=== PATIENT | female | born 1955 | race Caucasian/White ===

== ENCOUNTER 2017-10-14 13:56 | Emergency (ER) | payer OTHER ==
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
--- NOTE | 2017-10-14 14:45 | XRAY Report ---
EXAM: LEFT KNEE RADIOGRAPHY EXAM DATE: 10/14/2017 02:15 PM. CLINICAL HISTORY: Left knee pain after fall and twist injury COMPARISON: None. TECHNIQUE: 4 views. FINDINGS: Bones: Possible nondisplaced fracture involving the lateral tibial plateau. No other findings suspici ous for acute fracture or dislocation. Joints: Normal. No effusion. No subluxations. Soft Tissues: Normal. No soft tissue swelling. IMPRESSION: Possible nondisplaced fracture of the lateral tibial plateau. Correlation with CT could b e considered for further evaluation. [facility] Referring Provider Line: [phone] SITE ID: [id number]
[2017-10-14] MEDS ORDERED: ACETAMINOPHEN 325 MG TABLET PO STA (14:57)
--- NOTE | 2017-10-14 15:40 | XRAY Report ---
EXAM: LEFT TIBIA/FIBULA RADIOGRAPHY EXAM DATE: 10/14/2017 03:22 PM. CLINICAL HISTORY: Leg inj. COMPARISON: Prior same day examination of the knee. TECHNIQUE: 2 views. FINDINGS: Bones: The possible nondisplaced proximal tibial fracture was better appreciated on the prior same da y examination of the knee. No additional injuries are seen which are suspicious for fracture in the m id and distal tibia and fibula. Joints: The visualized knee and ankle joints are normal. No effusions. Soft Tissues: Normal. No soft tissue swelling. IMPRESSION: No fractures or dislocation in the distal tibia and fibula. [facility] Referring Provider Line: [phone] SITE ID: [id number]
--- NOTE | 2017-10-14 15:45 | CT Report ---
EXAM: LEFT KNEE CT WITHOUT CONTRAST EXAM DATE: 10/14/2017 03:19 PM. CLINICAL HISTORY: Knee inj, poss frx on XR. Possible nondisplaced fracture lateral tibial plateau lef t knee 4 views 10/14/2017. COMPARISON: Left knee 4 views 10/14/2017 and left leg 2 views 10/14/2017.. TECHNIQUE: Thin-section axial images were acquired of the knee without contrast. Post-processing: Cor onal and sagittal reformats. Other: None. In accordance with CT protocol optimization, one or more of the following dose reduction techniques w ere utilized for this exam: automated exposure control, adjustment of mA and/or KV based on patient s ize, or use of iterative reconstructive technique. FINDINGS: Bones: Sagittal nondisplaced intra-articular fracture lateral tibial plateau with extension to the me taphysis as noted on the left knee radiographs 10/14/2017. The patella is negative for fracture. Dist al femur is negative for fracture. There is no fibular head fracture identified. There is subcortical subtle sclerosis mid lateral tibial plateau consistent with infraction. Slight concavity is noted of the anterior aspect lateral tibial plateau sagittal reconstructions with 1.5 mm depression. Joints: The joint spaces are preserved. No calcified loose bodies. No large effusion. Musculature: Normal. No fatty atrophy. Other: No Bakers cyst. No soft tissue swelling. Negative for ACL tear. Intact posterior cruciate lig ament. Medial collateral ligament and fibular collateral ligament are intact. IMPRESSION: 1. There is a sagittal plane nondisplaced intra-articular fracture lateral tibial plateau. 2. There is subcortical infraction anterior aspect lateral tibial plateau with minimal 1.5 mm depress ion. [facility] Referring Provider Line: [phone] SITE ID: [id number]
[2017-10-14 17:37] VITALS: BP 107/77
== END 2017-10-14 17:55 | disposition home or self-care (01) ==
LOC: ED 13:56
DX: S82.145A Nondisplaced bicondylar fracture of left tibia, initial encounter for closed fracture (principal); W04.XXXA Fall while being carried or supported by other persons, initial encounter
CPT/HCPCS: 29530; 73564; 73590; 73700; 99283; 99284; A9270

== ENCOUNTER 2017-10-30 14:37 | Outpatient (CLI) | payer OTHER ==
--- NOTE | 2017-11-02 15:48 | DEXA Report ---
DEXA SCAN: 10/30/2017 HISTORY: Left tibial fracture. TECHNIQUE: Dual energy x-ray absorptiometry (DXA) was performed on a [employer] system. Regions measured are the AP spine, femoral neck, and, if needed, forearm. COMPARISON: None. In accordance with the International Society for Clinical Densitometry (ISCD) guidelines, data from previous exams may be reanalyzed using current recommendations and techniques. This is done to allow a more accurate basis for comparison with the current study. FINDINGS The data for the lumbar spine is as follows: REGION BMD (g/cm/cm) T-SCORE Z-SCORE L1 0.769 -3.0 -2.4 L2 0.816 -3.2 -2.6 L3 0.839 -3.0 -2.4 L4 0.973 -1.9 -1.3 L1-L4 0.861 -2.7 -2.0 NOTE: All evaluable vertebrae are used for classification. The data for the hip is as follows: REGION BMD (g/cm/cm) T-SCORE Z-SCORE Neck 0.656 -2.7 -1.9 TOTAL 0.644 -2.9 -2.4 NOTE: The femoral neck or total proximal femur, whichever is lowest, is used for classification. IMPRESSION: THE WHO CLASSIFICATION BASED ON THE INTERNATIONAL REFERENCE STANDARD IS OSTEOPOROSIS (REFERENCE LEFT HIP TOTAL BONE MINERAL DENSITY). THE FRACTURE RISK IS HIGH. RECOMMENDATION: Patients with diagnosis of osteoporosis or osteopenia should have regular bone mineral density assessment. For those eligible for Medicare, routine testing is allowed once every 2 years. Testing frequency can be increased for patients who have rapidly progressing disease or for those who are receiving medical therapy to restore bone mass. COMMENT World Health Organization (WHO) definitions for osteoporosis and osteopenia: NORMAL BMD: T-score at 1.0 or higher, fracture risk is low. OSTEOPENIA BMD: T-score between 1.0 and -2.5, fracture risk is increased. OSTEOPOROSIS BMD: T-score at 2.5 or lower, fracture risk high. National Osteoporosis Foundation recommends: 1. Obtain adequate dietary calcium (at least 1200 mg per day) and vitamin D (400 -800 international units per day). 2. Participate, as appropriate, in regular weightbearing and muscle- strengthening exercise. 3. Avoid tobacco use and reduce alcohol and caffeine intake. 4. For more detailed information see the website at www.NOF.org. TD: 10/30/2017 17:04 MTDShane
== END 2017-10-30 14:38 | disposition home or self-care (01) ==
LOC: DI 14:37
PROVIDERS: ATTEND Physician Assistant
DX: S82.152A Displaced fracture of left tibial tuberosity, initial encounter for closed fracture (principal); M81.0 Age-related osteoporosis without current pathological fracture
CPT/HCPCS: 77080

== ENCOUNTER 2018-01-16 08:05 | Outpatient (CLI) | payer OTHER ==
[2018-01-16 12:15] LABS: BASOPHILS # (AUTO) 0.1 10^3/uL (0.0-0.1); BASOPHILS % (AUTO) 0.7 %; EOSINOPHILS # (AUTO) 0.3 10^3/uL (0.0-0.7); EOSINOPHILS % (AUTO) 3.8 %; HGB - HEMOGLOBIN 14.2 g/dL (12.0-16.0); LYMPHOCYTES # (AUTO) 2.6 10^3/uL (1.5-3.5); LYMPHOCYTES % (AUTO) 37.4 %; MEAN CORPUSCULAR HEMOGLOBIN 32.2 pg (27.0-31.0); MEAN CORPUSCULAR HGB CONC 34.2 g/dL (32.0-36.0); MEAN PLATELET VOLUME 9.7 fL (7.9-10.8); MONOCYTES # (AUTO) 0.7 10^3/uL (0.0-1.0); MONOCYTES % (AUTO) 9.6 %; NEUTROPHILS # (AUTO) 3.4 10^3/uL (1.5-6.6); NEUTROPHILS % (AUTO) 48.5 %; PLT - PLATELET COUNT 246 10^3/uL (130-450); RED BLOOD COUNT 4.42 10^6/uL (4.20-5.40); RED CELL DISTRIBUTION WIDTH 13.8 % (12.0-15.0)
[2018-01-16 12:35] LABS: ALBUMIN/GLOBULIN RATIO 1.3 (1.0-2.2); ALKALINE PHOSPHATASE 82 IU/L (42-121); ALT ALANINE AMINOTRANSFERASE 24 IU/L (10-60); AST ASPARTATE AMINOTRANSFERASE 25 IU/L (10-42); BILIRUBIN,TOTAL 1.2 mg/dL (0.2-1.0); BUN - BLOOD UREA NITROGEN 20 mg/dL (6-20); CALCIUM 9.6 mg/dL (8.5-10.3); CARBON DIOXIDE - CO2 28 mmol/L (21-32); CHLORIDE 104 mmol/L (101-111); CHOL/HDL RATIO 3.1 (<4.4); CHOLESTEROL 210 mg/dL; CREATININE 0.8 mg/dL (0.4-1.0); GFR - MDRD 73 (>89); GLUCOSE 97 mg/dL (70-100); HDL CHOLESTEROL 67 mg/dL; LDL CHOLESTEROL,CALCULATED 116 mg/dL; LDL/HDL RATIO 1.7 (<4.4); SODIUM 139 mmol/L (135-145); TOTAL PROTEIN 7.1 g/dL (6.7-8.2); VLDL CHOLESTEROL 27 mg/dL
[2018-01-16 13:18] LABS: HB2 TOTAL 15.6 g/dL; HEMOGLOBIN A1C 0.62 g/dL; HEMOGLOBIN A1C % 5.8 % (4.6-6.2)
== END 2018-01-16 08:06 | disposition home or self-care (01) ==
LOC: LAB.WCP 08:05
PROVIDERS: ATTEND Physician Assistant
DX: Z00.00 Encounter for general adult medical examination without abnormal findings (principal); M81.0 Age-related osteoporosis without current pathological fracture
CPT/HCPCS: 36415; 80053; 80061; 82306; 83036; 83721; 84443; 85025

== ENCOUNTER 2018-05-01 15:34 | Outpatient (CLI) | payer OTHER ==
[2018-05-01] MEDS ORDERED: IOVERSOL 320 100 ML VIAL IVP ONE (15:48)
[2018-05-01] MEDS ORDERED: IOVERSOL 320 50 ML VIAL ONE (15:48)
[2018-05-01 16:00] LABS: BASOPHILS # (AUTO) 0.1 10^3/uL (0.0-0.1); EOSINOPHILS # (AUTO) 0.1 10^3/uL (0.0-0.7); EOSINOPHILS % (AUTO) 0.9 %; HGB - HEMOGLOBIN 14.6 g/dL (12.0-16.0); LYMPHOCYTES # (AUTO) 2.8 10^3/uL (1.5-3.5); LYMPHOCYTES % (AUTO) 19.5 %; MEAN CORPUSCULAR HEMOGLOBIN 31.5 pg (27.0-31.0); MEAN CORPUSCULAR HGB CONC 32.4 g/dL (32.0-36.0); MEAN CORPUSCULAR VOLUME 97.2 fL (81.0-99.0); MEAN PLATELET VOLUME 8.9 fL (7.9-10.8); MONOCYTES # (AUTO) 1.3 10^3/uL (0.0-1.0); MONOCYTES % (AUTO) 8.9 %; NEUTROPHILS # (AUTO) 9.9 10^3/uL (1.5-6.6); NEUTROPHILS % (AUTO) 69.7 %; PLT - PLATELET COUNT 255 10^3/uL (130-450); RED BLOOD COUNT 4.62 10^6/uL (4.20-5.40); RED CELL DISTRIBUTION WIDTH 13.8 % (12.0-15.0); WHITE BLOOD COUNT 14.3 x10^3/uL (4.8-10.8)
[2018-05-01 16:10] LABS: CALCIUM 9.6 mg/dL (8.5-10.3); CREATININE 0.9 mg/dL (0.4-1.0)
[2018-05-01] MEDS ORDERED: BARIUM SULFATE 450 ML BOTTLE PO ONE (17:57)
--- NOTE | 2018-05-01 18:09 | CT Report ---
Reason: DIVERTICULITIS, ACUTE Procedure Date: 05/01/2018 Accession Number: [id number] / [id number] Procedure: CT - Abdomen/Pelvis W/O CPT Code: FULL RESULT: EXAM: CT ABDOMEN AND PELVIS EXAM DATE: 05/01/2018 05:31 PM. CLINICAL HISTORY: Acute diverticulitis. COMPARISONS: None. TECHNIQUE: Routine helical CT imaging was performed through the abdomen and pelvis. IV contrast: No. Enteric contrast: No. Reconstructions: Coronal and sagittal. In accordance with CT protocol optimization, one or more of the following dose reduction techniques were utilized for this exam: automated exposure control, adjustment of mA and/or KV based on patient size, or use of iterative reconstructive technique. FINDINGS: Lung Bases: Unremarkable. Solid organs: Technically limited noncontrast imaging of the solid organs demonstrates no acute including no nephrolithiasis or hydronephrosis. Multiple nodules in the left upper quadrant region are seen likely due to splenosis. The [place] spleen is not well seen. Gallbladder/Bile Ducts: Unremarkable. Peritoneal Cavity/Bowel: There is moderate diverticular disease involving the left hemicolon. Focal wall thickening and fat stranding is seen involving the proximal and distal descending colon consistent with moderate diverticulitis. There is no free fluid or free air. No obstruction or ileus. The appendix is not visualized, however, no inflammatory changes are seen in the right lower quadrant region. Pelvic Organs: Hysterectomy changes are seen. The bladder and visualized pelvic organs are within normal limits. Vasculature: No aneurysms or other significant abnormality. Bones: No significant abnormality. Other: Mild fat-containing ventral hernia is seen in the epigastric region. IMPRESSION: 1. Moderate diverticulitis involving the left hemicolon. No free fluid, free air, or abscess. Consider posttreatment colonoscopy to exclude malignancy. 2. Absent spleen with multiple left upper quadrant nodules likely representing splenosis. 3. Mild fat-containing epigastric ventral hernia. [facility] The call report notification system was initiated by Dr. Arben Sharma at 18:03 hrs on 05/01/18. The above findings were discussed with Sabrina Orr by Dr. Arben Sharma at 18:07 hrs on 05/01/18.
== END 2018-05-01 15:35 | disposition home or self-care (01) ==
LOC: DI 15:34
PROVIDERS: ATTEND Physician Assistant
DX: K57.32 Diverticulitis of large intestine without perforation or abscess without bleeding (principal); K43.9 Ventral hernia without obstruction or gangrene; Z90.81 Acquired absence of spleen
CPT/HCPCS: 36415; 74176; 80048; 85025; A9270

== ENCOUNTER 2018-06-20 08:00 | Outpatient (CLI) | payer OTHER ==
[2018-06-20 19:26] LABS: CALCIUM 9.5 mg/dL (8.5-10.3); PHOSPHORUS 3.6 mg/dL (2.5-4.6)
== END 2018-06-20 23:59 | disposition home or self-care (01) ==
LOC: LAB.WCP 08:00
PROVIDERS: ATTEND Nurse Practitioner
DX: M81.0 Age-related osteoporosis without current pathological fracture (principal)
CPT/HCPCS: 36415; 81599; 82306; 82310; 82523; 83970; 84100

== ENCOUNTER 2018-09-28 13:13 | Outpatient (CLI) | payer OTHER ==
[2018-09-28 18:39] LABS: BASOPHILS # (AUTO) 0.1 10^3/uL (0.0-0.1); BASOPHILS % (AUTO) 0.6 %; EOSINOPHILS # (AUTO) 0.1 10^3/uL (0.0-0.7); EOSINOPHILS % (AUTO) 1.2 %; HGB - HEMOGLOBIN 14.6 g/dL (12.0-16.0); LYMPHOCYTES # (AUTO) 3.1 10^3/uL (1.5-3.5); LYMPHOCYTES % (AUTO) 35.2 %; MEAN CORPUSCULAR HEMOGLOBIN 31.4 pg (27.0-31.0); MEAN CORPUSCULAR HGB CONC 32.8 g/dL (32.0-36.0); MEAN CORPUSCULAR VOLUME 95.8 fL (81.0-99.0); MEAN PLATELET VOLUME 10.1 fL (7.9-10.8); MONOCYTES # (AUTO) 0.5 10^3/uL (0.0-1.0); MONOCYTES % (AUTO) 5.7 %; NEUTROPHILS % (AUTO) 57.3 %; PLT - PLATELET COUNT 243 10^3/uL (130-450); RED BLOOD COUNT 4.64 10^6/uL (4.20-5.40); RED CELL DISTRIBUTION WIDTH 13.5 % (12.0-15.0); WHITE BLOOD COUNT 8.7 x10^3/uL (4.8-10.8)
[2018-09-28 18:58] LABS: ALBUMIN 3.8 g/dL (3.2-5.5); ALBUMIN/GLOBULIN RATIO 1.2 (1.0-2.2); BILIRUBIN,TOTAL 0.7 mg/dL (0.2-1.0); CALCIUM 9.7 mg/dL (8.5-10.3); CREATININE 0.9 mg/dL (0.4-1.0)
== END 2018-09-28 23:59 | disposition home or self-care (01) ==
LOC: LAB.WCP 13:13
PROVIDERS: ATTEND Internal Medicine Gastroenterology
DX: R93.5 Abnormal findings on diagnostic imaging of other abdominal regions, including retroperitoneum (principal); W46.0XXA Contact with hypodermic needle, initial encounter
CPT/HCPCS: 36415; 80053; 85025

== ENCOUNTER 2018-10-05 08:00 | Outpatient (CLI) | payer OTHER ==
[2018-10-05 12:27] LABS: BASOPHILS # (AUTO) 0.1 10^3/uL (0.0-0.1); BASOPHILS % (AUTO) 0.6 %; EOSINOPHILS # (AUTO) 0.2 10^3/uL (0.0-0.7); EOSINOPHILS % (AUTO) 2.3 %; HGB - HEMOGLOBIN 14.3 g/dL (12.0-16.0); LYMPHOCYTES # (AUTO) 2.6 10^3/uL (1.5-3.5); LYMPHOCYTES % (AUTO) 32.3 %; MEAN CORPUSCULAR HEMOGLOBIN 31.3 pg (27.0-31.0); MEAN CORPUSCULAR HGB CONC 32.8 g/dL (32.0-36.0); MEAN CORPUSCULAR VOLUME 95.6 fL (81.0-99.0); MONOCYTES # (AUTO) 0.7 10^3/uL (0.0-1.0); MONOCYTES % (AUTO) 8.7 %; NEUTROPHILS # (AUTO) 4.5 10^3/uL (1.5-6.6); NEUTROPHILS % (AUTO) 56.1 %; PLT - PLATELET COUNT 230 10^3/uL (130-450); RED BLOOD COUNT 4.57 10^6/uL (4.20-5.40); RED CELL DISTRIBUTION WIDTH 13.6 % (12.0-15.0)
[2018-10-05 12:44] LABS: ALBUMIN 3.6 g/dL (3.2-5.5); ALBUMIN/GLOBULIN RATIO 1.1 (1.0-2.2); BILIRUBIN,TOTAL 0.7 mg/dL (0.2-1.0); CALCIUM 9.2 mg/dL (8.5-10.3); CREATININE 0.9 mg/dL (0.4-1.0)
== END 2018-10-05 23:59 | disposition home or self-care (01) ==
LOC: LAB.WCP 08:00
PROVIDERS: ATTEND Internal Medicine Gastroenterology
DX: R93.5 Abnormal findings on diagnostic imaging of other abdominal regions, including retroperitoneum (principal)
CPT/HCPCS: 36415; 80053; 85025

== ENCOUNTER 2018-10-11 12:36 | Day surgery (SDC) | payer OTHER ==
[2018-10-11] MEDS ORDERED: LACTATED RINGERS 1,000 ML IV ONE (13:32)
[2018-10-11 15:55] VITALS: BP 103/71
== END 2018-10-11 12:37 | disposition home or self-care (01) ==
LOC: SDS 12:36
PROVIDERS: ATTEND Internal Medicine Gastroenterology
PROC: 0DBL8ZZ Excision of Transverse Colon, Via Natural or Artificial Opening Endoscopic (ICD-10-PCS; 2018-10-11)
PROC: 0DBM8ZZ Excision of Descending Colon, Via Natural or Artificial Opening Endoscopic (ICD-10-PCS; principal; 2018-10-11 14:00)
DX: K57.30 Diverticulosis of large intestine without perforation or abscess without bleeding (principal); D12.4 Benign neoplasm of descending colon; D12.3 Benign neoplasm of transverse colon; K21.9 Gastro-esophageal reflux disease without esophagitis; R22.2 Localized swelling, mass and lump, trunk; K43.9 Ventral hernia without obstruction or gangrene; J45.909 Unspecified asthma, uncomplicated; E66.9 Obesity, unspecified; Z68.33 Body mass index [BMI] 33.0-33.9, adult; M81.0 Age-related osteoporosis without current pathological fracture; J30.9 Allergic rhinitis, unspecified; R05 Cough; G97.82 Other postprocedural complications and disorders of nervous system; Y83.8 Other surgical procedures as the cause of abnormal reaction of the patient, or of later complication, without mention of misadventure at the time of the procedure; H91.92 Unspecified hearing loss, left ear; R42 Dizziness and giddiness; R26.81 Unsteadiness on feet; R29.810 Facial weakness; Z90.49 Acquired absence of other specified parts of digestive tract; Z86.69 Personal history of other diseases of the nervous system and sense organs; Z87.891 Personal history of nicotine dependence
CPT/HCPCS: 45380; J7120

== ENCOUNTER 2018-10-16 07:17 | Outpatient (CLI) | payer OTHER ==
[2018-10-16 13:18] LABS: CHOL/HDL RATIO 3.2 (<4.4); CHOLESTEROL 210 mg/dL; HDL CHOLESTEROL 66 mg/dL; LDL CHOLESTEROL,CALCULATED 118 mg/dL; LDL/HDL RATIO 1.8 (<4.4); VLDL CHOLESTEROL 26 mg/dL
== END 2018-10-16 07:18 | disposition home or self-care (01) ==
LOC: LAB.WCP 07:17
PROVIDERS: ATTEND Physician Assistant
DX: E78.5 Hyperlipidemia, unspecified (principal)
CPT/HCPCS: 36415; 80061; 83721

== ENCOUNTER 2018-11-12 14:14 | Outpatient (CLI) | payer OTHER ==
--- NOTE | 2018-11-12 15:50 | CARDIAC PROCEDURE NOTE ---
DATE OF SERVICE: 11/12/2018 Physician: Danika Garcia MD, [facility] INDICATIONS: Shortness of breath with exertion. CARDIAC RISK FACTORS: Postmenopausal status, family history of heart disease. DESCRIPTION OF PROCEDURE: After signing informed consent, the patient underwent a Bruno-protocol treadmill stress test. No imaging was ordered with this test. RESTING HEART RATE: 70. PEAK HEART RATE: 133 (85% predicted maximum heart rate for age). RESTING BLOOD PRESSURE: 122/75. Peak blood pressure: 164/82 and it kiley further in early recovery to 170/85 before reversing to baseline. The patient exercised for 5 minutes and 3 seconds on a Bruno-protocol treadmill stress test. She achieved a peak heart rate of 133 (85% PMHR) and 7.1 METS. The patient developed shortness of breath, which she rated moderate, and had no chest pain. She rated her exertional level at 13-14 /20 at peak, on the Beatriz scale. Oxygen saturation was 96% on room air, at immediate recovery. RESTING ELECTROCARDIOGRAM: Normal sinus rhythm, rare PACs, otherwise WNL. ELECTROCARDIOGRAM AT PEAK: No new ST segment or T-wave changes, rare PACs, rare PVCs present. IMPRESSION 1. Borderline abnormal resting electrocardiogram. 2. No ischemic changes are present at peak, at an adequate level of stress. 3. No imaging study was ordered with this test. 4. Low cardiac risk status with the above test results. cc: Sabrina Orr PA-C TD: 11/12/2018 15:41 MTDD
== END 2018-11-12 14:15 | disposition home or self-care (01) ==
LOC: DI 14:14
PROVIDERS: ATTEND Physician Assistant
DX: R06.00 Dyspnea, unspecified (principal); Z82.49 Family history of ischemic heart disease and other diseases of the circulatory system; Z78.0 Asymptomatic menopausal state
CPT/HCPCS: 93017

== ENCOUNTER 2019-06-19 15:11 | Outpatient (CLI) | payer OTHER ==
[2019-06-19 19:15] LABS: HB2 TOTAL 15.2 g/dL; HEMOGLOBIN A1C 0.62 g/dL; HEMOGLOBIN A1C % 5.9 % (4.6-6.2)
== END 2019-06-19 23:59 | disposition home or self-care (01) ==
LOC: LAB.WCP 15:11
PROVIDERS: ATTEND Physician Assistant
DX: R73.9 Hyperglycemia, unspecified (principal)
CPT/HCPCS: 36415; 82330; 83036

== ENCOUNTER 2019-06-19 15:53 | Outpatient (CLI) | payer OTHER | END 2019-06-19 15:54 | disposition home or self-care (01) | LOC: LAB 15:53 | PROVIDERS: ATTEND Nurse Practitioner | DX: M81.0 Age-related osteoporosis without current pathological fracture (principal); R73.9 Hyperglycemia, unspecified | CPT/HCPCS: 36415; 82330; 83036 ==

== ENCOUNTER 2019-06-22 14:42 | Outpatient (CLI) | payer OTHER | END 2019-06-22 14:43 | disposition home or self-care (01) | LOC: LAB 14:42 | PROVIDERS: ATTEND Nurse Practitioner | DX: M81.0 Age-related osteoporosis without current pathological fracture (principal) | CPT/HCPCS: 82310 ==

== ENCOUNTER 2020-02-12 14:28 | Outpatient (CLI) | payer OTHER ==
--- NOTE | 2020-02-12 17:08 | DEXA Report ---
PROCEDURE: Dexa Spine and/or Hip INDICATIONS: OSTEOPOROSIS TECHNIQUE: Dual energy x-ray absorptiometry (DXA) was performed on a [employer] System. Regions measur ed are the AP Spine, femoral neck, and if needed forearm. COMPARISON: 11/13 bone densitometry study, same methodology.. FINDINGS: Lumbar Spine: Bone Mineral Density 1.033 g/cm/cm,T score -1.2, osteopenia, this represents a 20% statistically s ignificant improvement in bone mineral density with reference to the prior study from October 2017. Left Hip: Bone Mineral Density 0.641 g/cm/cm,T score -2.9, osteoporosis Left Femoral Neck: Bone Mineral Density 0.619 g/cm/cm, T score -3.0, osteoporosis (T score greater or equal to -1.0: NORMAL) (T score from -1.1 to -2.4: OSTEOPENIA) (T score less than or equal to -2.5 to: OSTEOPOROSIS) Impression: There has been a statistically significant improvement in bone mineral density along the lumbosacral spine, with reference to the prior study from October 2017. Osteopenia is present at this ar ea. Osteoporosis is present at the left hip overall and the left femoral neck specifically. No statis tically significant improvement at the left hip area is observed. Patients with diagnosis of osteoporosis or osteopenia should have regular bone mineral density assess ment. For those eligible for Medicare, routine testing is allowed once every 2 years. Testing frequ ency can be increased for patients who have rapidly progressing disease or for those who are receivin g medical therapy to restore bone mass. Reviewed by: Freedom Lord MD on 02/12/2020 5:07 PM PDT Approved by: Freedom Lord MD on 02/12/2020 5:07 PM PDT Station ID: [id number]
== END 2020-02-12 14:29 | disposition home or self-care (01) ==
LOC: DI 14:28
PROVIDERS: ATTEND Internal Medicine Endocrinology, Diabetes & Metabolism
DX: M81.0 Age-related osteoporosis without current pathological fracture (principal)
CPT/HCPCS: 77080

== ENCOUNTER 2020-04-27 07:00 | Outpatient (CLI) | payer OTHER | END 2020-04-27 23:59 | disposition home or self-care (01) | LOC: LAB.R 07:00 | PROVIDERS: ATTEND Physician Assistant | DX: R53.83 Other fatigue (principal); Z20.828 Contact with and (suspected) exposure to other viral communicable diseases ==

== ENCOUNTER 2020-07-24 11:55 | Outpatient (CLI) | payer OTHER ==
[2020-07-24 15:34] LABS: ALBUMIN 4.4 g/dL (3.2-5.5); CALCIUM 10.2 mg/dL (8.5-10.3); CREATININE 0.9 mg/dL (0.4-1.0); PHOSPHORUS 3.6 mg/dL (2.5-4.6); POTASSIUM 4.1 mmol/L (3.5-5.0)
== END 2020-07-24 11:56 | disposition home or self-care (01) ==
LOC: LAB.S 11:55
PROVIDERS: ATTEND Internal Medicine Endocrinology, Diabetes & Metabolism
DX: M81.0 Age-related osteoporosis without current pathological fracture (principal)
CPT/HCPCS: 36415; 80069; 82306; 83970

== ENCOUNTER 2020-12-09 12:56 | Outpatient (CLI) | payer MEDICARE, OTHER ==
--- NOTE | 2020-12-10 12:48 | Mammography Report ---
BILATERAL DIGITAL SCREENING MAMMOGRAM 3D/2D: 12/09/2020 CLINICAL: Family history of breast cancer. Comparison is made to exam dated: 12/14/2016 mammogram - [facility] [place]. There are scattered fibroglandular elements in both breasts. No significant masses, calcifications, or other findings are seen in either breast. There has been no significant interval change. IMPRESSION: NEGATIVE There is no mammographic evidence of malignancy. A 1 year screening mammogram is recommended. This exam was interpreted at Station ID: [id number]. NOTE: For mammograms, a report in lay terms will be sent to the patient. Approximately 15% of breast malignancies will not be visualized mammographically. In the management of a palpable breast mass, a negative mammogram must not discourage biopsy of a clinically suspicious lesion. Electronically Signed By: Bossman amin/raquel:12/09/2020 13:46:52 ACR BI-RADS Category 1: Negative 3341F PARENCHYMAL PATTERN: (A) - The breast(s) demonstrate(s) scattered fibroglandular densities. BI-RADS CATEGORY: (1) - 1 RECOMMENDATION: (ANNUAL) - Recommend routine annual screening mammography. [id number] 1 year screening LATERALITY: (B)
== END 2020-12-09 12:57 | disposition home or self-care (01) ==
LOC: DI.S 12:56
PROVIDERS: ATTEND Registered Nurse
DX: Z12.31 Encounter for screening mammogram for malignant neoplasm of breast (principal); Z80.3 Family history of malignant neoplasm of breast

== ENCOUNTER 2021-02-18 19:01 | Inpatient (IN) | payer MEDICARE ==
[2021-02-18] MEDS ORDERED: SODIUM CHLORIDE 0.9% 1,000 ML IV STA ×2 (19:16→20:47)
[2021-02-18] MEDS ORDERED: ONDANSETRON 4 MG/2 ML VIAL IVP STA (19:16)
[2021-02-18] MEDS ORDERED: KETOROLAC 15 MG/ML VIAL IVP STA ×2 (19:27→20:58)
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
[2021-02-18 19:34] LABS: BILIRUBIN,URINE NEGATIVE (NEGATIVE); GLUCOSE, URINE (UA) NEGATIVE (NEGATIVE); KETONES,URINE (UA) 40 mg/dL (NEGATIVE); LEUKOCYTE ESTERASE, URINE NEGATIVE (NEGATIVE); NITRITE,URINE NEGATIVE (NEGATIVE); OCCULT BLOOD,URINE SMALL (NEGATIVE); PROTEIN,URINE NEGATIVE (NEGATIVE); UROBILINOGEN,URINE 0.2 (NORMAL) E.U./dL (NORMAL)
[2021-02-18 19:36] LABS: CLARITY,URINE CLEAR (CLEAR)
[2021-02-18 19:43] LABS: BACTERIA,URINE Rare /HPF (None Seen); MUCUS,URINE Few Strands; RBC,URINE 0-5 /HPF (0-5); SQUAMOUS EPITHELIAL CELL,UR RARE Squamous (<= Few); WBC,URINE 0-3 /HPF (0-5)
[2021-02-18 19:47] LABS: BASOPHILS # (AUTO) 0.1 10^3/uL (0.0-0.1); BASOPHILS % (AUTO) 0.3 %; EOSINOPHILS # (AUTO) 0.2 10^3/uL (0.0-0.7); EOSINOPHILS % (AUTO) 0.9 %; HCT - HEMATOCRIT 47.9 % (37.0-47.0); HGB - HEMOGLOBIN 15.8 g/dL (12.0-16.0); LYMPHOCYTES # (AUTO) 3.3 10^3/uL (1.5-3.5); LYMPHOCYTES % (AUTO) 17.1 %; MEAN CORPUSCULAR HEMOGLOBIN 31.9 pg (27.0-31.0); MEAN CORPUSCULAR VOLUME 96.6 fL (81.0-99.0); MEAN PLATELET VOLUME 10.9 fL (7.9-10.8); MONOCYTES # (AUTO) 1.9 10^3/uL (0.0-1.0); MONOCYTES % (AUTO) 9.8 %; NEUTROPHILS # (AUTO) 13.6 10^3/uL (1.5-6.6); NEUTROPHILS % (AUTO) 71.4 %; PLT - PLATELET COUNT 227 10^3/uL (130-450); RED BLOOD COUNT 4.96 10^6/uL (4.20-5.40); WHITE BLOOD COUNT 19.1 x10^3/uL (4.8-10.8)
[2021-02-18 19:52] LABS: SLIDE REVIEW? Indicated
[2021-02-18 20:07] LABS: ALBUMIN 4.2 g/dL (3.2-5.5); ALBUMIN/GLOBULIN RATIO 1.2 (1.0-2.2); BILIRUBIN,TOTAL 1.7 mg/dL (0.2-1.0); CALCIUM 9.7 mg/dL (8.5-10.3); CREATININE 0.8 mg/dL (0.4-1.0); POTASSIUM 4.3 mmol/L (3.5-5.0); TOTAL PROTEIN 7.6 g/dL (6.7-8.2)
[2021-02-18] MEDS ORDERED: IOPAMIDOL-300 100 ML VIAL ONE (20:13)
[2021-02-18 20:18] LABS: PLATELET ESTIMATE, MANUAL NORMAL (130-450,000) (NORMAL); PLATELET MORPHOLOGY NORMAL APPEARANCE (NORMAL); RBC MORPHOLOGY (MULTIPLE) NORMAL APPEARANCE (NORMAL); WBC MORPHOLOGY (MULTIPLE) NORMAL APPEARANCE (NORMAL)
[2021-02-18] MEDS ORDERED: diphenhydrAMINE INJ 50 MG/ML VIAL IVP STA (20:20)
[2021-02-18] MEDS ORDERED: CIPROFLOXACIN 400 MG/200 ML 400 MG/200 ML BAG IV STA (20:48)
[2021-02-18] MEDS ORDERED: metroNIDAZOLE 500 MG/100 ML 500 MG/100 ML BAG IV ONE (20:49)
[2021-02-18] MEDS ORDERED: IOPAMIDOL-300 100 ML VIAL IVP ONE (20:51)
[2021-02-18] MEDS ORDERED: FAMOTIDINE 20 MG/2 ML VIAL IVP STA (20:58)
[2021-02-18] MEDS ORDERED: METOCLOPRAMIDE 10 MG/2 ML VIAL IVP STA (20:58)
--- NOTE | 2021-02-18 21:26 | CT Report ---
PROCEDURE: Abdomen/Pelvis W INDICATIONS: LLQ/suprapubic pain CONTRAST: IV CONTRAST: Isovue 300 ml: 100 PO CONTRAST: *NO PO CONTRAST TECHNIQUE: After the administration of weight appropriate dose of intravenous contrast, 5 mm thick sections acqu ired from the diaphragms to the symphysis. 5 mm thick coronal and sagittal reformats were acquired. For radiation dose reduction, the following was used: automated exposure control, adjustment of mA and/or kV according to patient size. COMPARISON: 05/01/2018. FINDINGS: Image quality: Excellent. ABDOMEN: Lung bases: Bibasilar atelectasis. Heart size is normal. Small hiatal hernia. Solid organs: Liver appears normal in size and enhancement. Gallbladder is unremarkable. Biliary system is non dilated. Pancreas enhances normally. No adrenal nodules. Multiple splenules are again noted, compatible with splenosis. Kidneys demonstrate normal size and enhancement, without hydroneph rosis. Bilateral ureters are normal in course and caliber. Peritoneum and bowel: Extensive colonic diverticulosis most pronounced in the descending colon and s igmoid colon. There is moderate inflammatory changes of the sigmoid colon with associated wall thicke isaac. There is also a focus of extraluminal gas noted over the antimesenteric side of the sigmoid col on measuring approximately 2.1 cm in size. No evidence for organized fluid collection. Remaining hi l loops demonstrate normal wall thickness and caliber. No free fluid. Nodes and vessels: No retroperitoneal or mesenteric adenopathy by size criteria. Aorta and inferior vena cava are normal in size. Atherosclerotic calcifications are present. Miscellaneous: Stable small fat-containing ventral hernia a short distance superior to the umbilicus without evidence for acute inflammation.. PELVIS: Genitourinary: Bladder wall thickness is normal for degree of bladder distention. Miscellaneous: No inguinal hernias or adenopathy. Bones: No suspicious bony lesions. No acute vertebral body compression fractures. IMPRESSION: 1. Extensive colonic diverticulosis most pronounced in the descending colon and sigmoid colon with a segment of moderate acute diverticulitis of the sigmoid colon. There is an associated contained perfo ration adjacent to the antimesenteric side of the mid sigmoid colon. No evidence for abscess formatio n or drainable fluid collection. Consider outpatient colonoscopy to exclude underlying neoplastic pro cess after treatment and resolution of acute symptoms. 2. Stable appearance of splenosis. 3. Fat-containing ventral hernia without acute inflammation. Findings were discussed with Dr. Márquez of the emergency department at 2122 hours. Reviewed by: Tushar Munoz MD on 02/18/2021 9:25 PM PDT Approved by: Tushar Munoz MD on 02/18/2021 9:25 PM PDT Station ID: [id number]
[2021-02-18] MEDS ORDERED: SODIUM CHLORIDE FLUSH 0.9% 10 ML SYRINGE IVP PRN (21:52)
--- NOTE | 2021-02-18 22:04 | HISTORY & PHYSICAL EXAMINATION ---
Chief Complaint - Chief Complaint Chief Complaint: abd pain, N/V History of Present Illness - Admitted From Admitted From:: ED - History Obtained From History obtained from: ED provider and the patient - History of Present Illness HPI Comment/Other: This is a 65-year-old white female with history of GERD, osteoporosis and 5 prior episodes of diverticulitis, managed with oral antibiotics. Today she went to the [place] walk-in clinic complaining of severe lower abdominal pain, nausea and vomiting, was constipated for several days then had passed a pebble-like hard stool, not normal for her. At tne clinic, she was found to have a low-grade fever and sent to the ED. In the ED, her exam showed tenderness of the abdomen but a nonsurgical belly. CT imaging showed extensive diverticulosis with diverticulitis of the sigmoid colon and a contained perforation, no abscess and no free air. White blood count elevated at 19. The ED provider reached out to the General Surgeon on-call, Dr. Quiroz, who stated that this problem could be handled here and advised admission to Hospitalist service and General Surgery to follow as consultants. Her CODE status is Full Code. 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 Her parents do not have diverticulitis but her sister does. Her one child does not have diverticulitis. Living arrangement: At home Living Situation: With spouse/s.o. Social History Notes: She has 1 adult child who is healthy. She is a non-smoker who quit 30 years ago. She drinks 1 glass of wine per day. There is no illicit drug use history. 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 She is active around the house, currently doing remodeling with her . - Substance History Use: Uses substance without health or social issues: Alcohol Meds/Allgy - Home Medications Home Medications: Ambulatory Orders Medication Instructions Recorded Confirmed Fluticasone [Flonase] 1 applic INH DAILY 10/14/17 10/11/18 Omeprazole [PriLOSEC] 2 tab PO DAILY 10/14/17 10/11/18 Abaloparatide [Tymlos] 1.56 ml SQ 10/11/18 10/11/18 C,E,Zinc,Copper 11/Eblha0o/Lut 1 each PO DAILY 10/11/18 10/11/18 [Ocuvite Adult 50 Plus Softgel] Cholecalciferol (Vitamin D3) 5,000 unit PO DAILY 10/11/18 10/11/18 [Vitamin D3] Fexofenadine HCl 180 mg PO DAILY 10/11/18 10/11/18 Lactobacillus Acidophilus 1 each PO DAILY 10/11/18 10/11/18 [Probiotic Acidophilus] Mometasone Furoate [Asmanex] 220 mcg IH BID 10/11/18 10/11/18 Multivitamin [One Daily 1 each PO DAILY 10/11/18 10/11/18 Multivitamin] - Allergies Allergies/Adverse Reactions: Allergies Allergy/AdvReac Type Severity Reaction Status Date / Time Iodinated Contrast Media Allergy Anaphylaxis Verified 02/18/21 19:11 [Iodinated Contrast- Oral and IV Dye] Sulfa (Sulfonamide Allergy Anaphylaxis Verified 02/18/21 19:11 Antibiotics) Review of Systems - Gastrointestinal Gastrointestinal: reports: Abdominal pain, Constipation, Nausea, Vomiting - All Other Systems All Other Systems: reports: Reviewed and negative Exam - Vital Signs Reviewed Vital Signs: Yes Vital Signs: Vital Signs x48h Temp Pulse Resp BP Pulse Ox 02/18/21 21:11 37.2 C 72 15 119/70 95 02/18/21 19:05 37.4 C 101 H 14 144/91 H 98 - Physical Exam General Appearance: positive: No acute distress, Alert Eyes Bilateral: positive: Normal inspection, EOMI ENT: positive: ENT inspection nml, No signs of dehydration Neck: positive: Nml inspection, No JVD Respiratory: positive: No respiratory distress, Breath sounds nml Cardiovascular: positive: Regular rate & rhythm, No murmur Abdomen: positive: No distention (Soft, diminished bowel sounds, tender in lower mid-abdomen without gurading or rebound.) Skin: positive: Warm, Dry Extremities: positive: Non-tender, No pedal edema Neurologic/Psychiatric: positive: Oriented x3 (Non-focal.) Conclusion/Plan - Problem List (1) Sigmoid diverticulitis Conclusion/Plan: Imaging shows diverticulitis and she had a (low-grade) fever, elevated WBC and elevated bili (probably phase reactant). Begin bowel rest, iv fluids and empiric iv antibiotics (iv Cipro and iv Flagyl). Await blood culture results, sent from the ER. Give iV pain meds; the patient is turning down narcotics as they cause her nausea. (2) Bowel perforation Conclusion/Plan: As per Dr Quiroz' discussion with ED provider, this complication of divereticulitis can be handled here. Will ask for General Surgery consult and to follow along with us. (3) N&V (nausea and vomiting) Conclusion/Plan: Give iv antiemetics Bowel rest except sips and chips iv fluids started Follow BMP and Ca, Mg, PO4 daily. Replace if low. (4) Prerenal azotemia Conclusion/Plan: Likely related to dehydration from N/V. Avoi nephrotoxins. IV fluids started Follow BMP daily (5) Hx of gastroesophageal reflux (GERD) Conclusion/Plan: Will give iv Pepcid (6) Allergy to IVP dye Conclusion/Plan: According to the record, she has allergy to IV dye. She told the ED today that she has had it recently and has had no reactions. She received Benadryl before this current CT imaging with IV contrast given and has been somnolent and hypopneic. - Lab Results Fish Bones: 02/18/21 19:35 02/18/21 19:35
[2021-02-18] MEDS: D5NS W/20 MEQ KCL 1,000 ML IV SCH (22:52)
[2021-02-18 23:19] LABS: B. PARAPERTUSSIS- RESP PCR PAN NOT DETECTED; B. PERTUSSIS- RESP PCR PANEL NOT DETECTED; C. PNEUMONIAE- RESP PCR PANEL NOT DETECTED; CORONAVIRUS 229E-RESP PCR NOT DETECTED; CORONAVIRUS HKU1-RESP PCR NOT DETECTED; CORONAVIRUS NL63-RESP PCR NOT DETECTED; CORONAVIRUS OC43-RESP PCR NOT DETECTED; HUMAN METAPNEUMOVIRUS NOT DETECTED; INFLUENZA A- RESP PCR PANEL NOT DETECTED; INFLUENZA B - RESP PCR PANEL NOT DETECTED; M. PNEUMONIAE- RESP PCR PANEL NOT DETECTED; PARAINFLUENZA VIRUS 1 NOT DETECTED; PARAINFLUENZA VIRUS 2 NOT DETECTED; PARAINFLUENZA VIRUS 3 NOT DETECTED; PARAINFLUENZA VIRUS 4 NOT DETECTED; RHINOVIRUS/ENTEROVIRUS NOT DETECTED; RSV- RESP PCR PANEL NOT DETECTED; SARS-CoV-2 -RESP PCR PANEL NOT DETECTED
[2021-02-18] MEDS: SODIUM CHLORIDE FLUSH 0.9% 10 ML SYRINGE IVP SCH (23:59)
[2021-02-18] MEDS: FAMOTIDINE 20 MG/2 ML VIAL IVP SCH (23:59)
[2021-02-19] MEDS: KETOROLAC 15 MG/ML VIAL IVP PRN ×4 (04:48→23:32)
[2021-02-19] MEDS: metroNIDAZOLE 500 MG/100 ML 500 MG/100 ML BAG IV SCH ×3 (04:49→21:16)
[2021-02-19 05:46] LABS: BASOPHILS % (AUTO) 0.3 %; EOSINOPHILS # (AUTO) 0.2 10^3/uL (0.0-0.7); EOSINOPHILS % (AUTO) 1.6 %; HCT - HEMATOCRIT 39.1 % (37.0-47.0); HGB - HEMOGLOBIN 12.5 g/dL (12.0-16.0); LYMPHOCYTES # (AUTO) 2.5 10^3/uL (1.5-3.5); LYMPHOCYTES % (AUTO) 19.5 %; MEAN CORPUSCULAR HEMOGLOBIN 31.6 pg (27.0-31.0); MEAN PLATELET VOLUME 10.8 fL (7.9-10.8); MONOCYTES # (AUTO) 1.4 10^3/uL (0.0-1.0); MONOCYTES % (AUTO) 11.4 %; NEUTROPHILS # (AUTO) 8.4 10^3/uL (1.5-6.6); NEUTROPHILS % (AUTO) 66.7 %; PLT - PLATELET COUNT 197 10^3/uL (130-450); RED BLOOD COUNT 3.95 10^6/uL (4.20-5.40); RED CELL DISTRIBUTION WIDTH 14.1 % (12.0-15.0); WHITE BLOOD COUNT 12.6 x10^3/uL (4.8-10.8)
[2021-02-19 06:01] LABS: CALCIUM 8.2 mg/dL (8.5-10.3); CREATININE 0.8 mg/dL (0.4-1.0); MAGNESIUM 2.1 mg/dL (1.7-2.8); PHOSPHORUS 2.8 mg/dL (2.5-4.6); POTASSIUM 3.7 mmol/L (3.5-5.0)
[2021-02-19] MEDS: FAMOTIDINE 20 MG/2 ML VIAL IVP SCH ×2 (08:50→21:15)
[2021-02-19] MEDS: D5NS W/20 MEQ KCL 1,000 ML IV SCH ×2 (08:51→23:54)
[2021-02-19] MEDS: SODIUM CHLORIDE FLUSH 0.9% 10 ML SYRINGE IVP SCH ×2 (08:51→17:21)
[2021-02-19] MEDS ORDERED: FAMOTIDINE 20 MG/2 ML VIAL IVP SCH (09:00)
--- NOTE | 2021-02-19 09:10 | PROVIDER PROGRESS NOTE ---
Assessment/Plan - Problem List (1) Bowel perforation Assessment/Plan: According to admitting hospitalist note, Dr. Quiroz was consulted by ED provider and determined that complication of diverticulitis can be handled here. CT of abd showed extensive diverticulosis that is more pronounced in the descending and sigmoid colon. There is also an associated contained perforation adjacent to the antimesenteric side of the mid sigmid colon. No evidence for abscess or fluid collection. Plan: General Surgery to consult and follow along with hospitalist team. Continue with IV antibiotic therapy, Cipro and Flagyl. (2) Sigmoid diverticulitis Assessment/Plan: Upon admission to unit patient had lower grade fever of 37.4C which has improved to 36.3C today. Her initial WBC were elevated to 19.1 and have decreased to 12.6 today. Initial bilirubin was elevated 1.7, this is most likly due to divertiulitis since liver enzymes are normal and no pathological cause was identified on on the CT. Imaging did show moderate diverticulitis of the sigmoid colon. Blood cultures sent from ED and are currently pending. Plan: Continue bowel rest with sips and chips for comfort and to keep mucus membranes moist. Continue IV fluids D5 + 20KCL while NPO. Continue empiric IV antibiotics with Cipro and Flagyl. Continue with IV Toradol for pain management. Add IV morphine for prn breakthrough pain, however she prefers not to use narcotics. Continue to monitor WBC and temperature. Repeat the bilirubin to monitor trend. (3) N&V (nausea and vomiting) Assessment/Plan: Patient reports nausea that coincided with abdominal pain. She denies vomiting and reports that the nausea is well controlled with current antiemetics. Plan: Continue bowel rest except sips and chips Continue with iv D5 +20KCL. Monitor BMP, Ca, Mg, PO4 daily and replace if low. (4) Prerenal azotemia Assessment/Plan: Initial BUN/ Creat 23/0.8 is improved today 17/0.8. Likely related to dehydration from N/V. Plan: Avoid nephrotoxins. Continue with IV fluids D5 +20KCL. Follow BMP daily. (5) Hx of gastroesophageal reflux (GERD) Assessment/Plan: Patient has history of GERD and takes Prilosec outpatient. Plan: Continue with iv Pepcid BID. - Current Meds Current Meds: Current Medications Generic Name Dose Route Start Last Admin Trade Name Freq PRN Reason Stop Dose Admin Famotidine 20 mg 02/18/21 23:00 02/19/21 08:50 Famotidine 20 Mg/2 Ml Vial IVP 20 mg BID PATTIE Administration Potassium Chloride/Dextrose/Sod Cl 1,000 mls @ 100 mls/hr 02/18/21 22:00 02/19/21 08:51 D5ns W/20 Meq Kcl IV 100 mls/hr .Q10H PATTIE Administration Metronidazole 500 mg in 100 mls @ 100 mls/hr 02/19/21 05:00 02/19/21 06:01 Flagyl 500 Mg/100 Ml IV Infused Q8H PATTIE Infusion Ketorolac Tromethamine 15 mg 02/18/21 21:57 02/19/21 04:48 Ketorolac 15 Mg/Ml Vial IVP 02/23/21 21:56 15 mg Q6HR PRN Administration PAIN Sodium Chloride 10 ml 02/19/21 01:00 02/19/21 08:51 Sodium Chloride Flush 0.9% 10 Ml Syringe IVP 10 ml 0100,0900,1700 PATTIE Administration - Lab Result Fish Bone Diagrams: 02/19/21 05:18 02/19/21 05:18 <Demetra Marshall - Last Filed: 02/19/21 11:06> - Current Meds Current Meds: Current Medications Generic Name Dose Route Start Last Admin Trade Name Vladislav PRN Reason Stop Dose Admin Famotidine 20 mg 02/18/21 23:00 02/20/21 08:40 Famotidine 20 Mg/2 Ml Vial IVP 20 mg BID PATTIE Administration Potassium Chloride/Dextrose/Sod Cl 1,000 mls @ 100 mls/hr 02/18/21 22:00 02/20/21 10:58 D5ns W/20 Meq Kcl IV 100 mls/hr .Q10H PATTIE Infusion Ciprofloxacin 400 mg in 200 mls @ 200 mls/hr 02/19/21 10:00 02/20/21 10:50 Cipro 400 Mg/200 Ml IV Infused Q12H PATTIE Infusion Metronidazole 500 mg in 100 mls @ 100 mls/hr 02/19/21 05:00 02/20/21 13:45 Flagyl 500 Mg/100 Ml IV Infused Q8H PATTIE Infusion Ketorolac Tromethamine 15 mg 02/18/21 21:57 02/20/21 06:33 Ketorolac 15 Mg/Ml Vial IVP 02/23/21 21:56 15 mg Q6HR PRN Administration PAIN Morphine Sulfate 2 mg 02/20/21 10:36 02/20/21 12:21 Morphine 2 Mg/Ml Carpuject IVP 2 mg Q2HR PRN Administration PAIN Ondansetron HCl 4 mg 02/18/21 21:52 02/20/21 09:18 Ondansetron 4 Mg/2 Ml Vial IVP 4 mg Q6HR PRN Administration Nausea / Vomiting Prochlorperazine Edisylate 10 mg 02/18/21 21:52 02/20/21 12:29 Prochlorperazine 10 Mg/2 Ml Vial IVP 10 mg Q6HR PRN Administration Nausea / Vomiting Sodium Chloride 10 ml 02/18/21 21:52 02/20/21 12:22 Sodium Chloride Flush 0.9% 10 Ml Syringe IVP 10 ml PRN PRN Administration NEEDED PER PROVIDER ORDERS Sodium Chloride 10 ml 02/19/21 01:00 02/20/21 17:09 Sodium Chloride Flush 0.9% 10 Ml Syringe IVP Not Given 0100,0900,1700 PATTIE - Lab Result Fish Bone Diagrams: 02/20/21 05:29 02/20/21 05:29 - Additional Planning My Orders: My Active Orders 02/20/21 10:36 Morphine Inj (Carpuject) [Morphine (Carpuject)] 2 mg IVP Q2HR PRN 02/20/21 Lunch Clear Liquid Diet [DIET] <Britney David - Last Filed: 02/20/21 17:38> Subjective - Subjective Patient Reports: Feeling Better, Resting Comfortably, Abdominal Pain, Nausea (Patient reports feeling better today with continued mid lower abdominal pain 4/10 that is achy in character. It is associated with nausea. Pain and nausea are worse with movement but improve with rest and toradol.) <Demetra Marshall - Last Filed: 02/19/21 11:06> Objective Vital Signs: Vital Signs - 24 hr 02/18/21 02/18/21 02/18/21 19:05 21:11 22:39 Temperature 37.4 C 37.2 C Heart Rate 101 H 72 Heart Rate [ 74 Brachial] Respiratory 14 15 18 Rate Blood Pressure 144/91 H 119/70 Blood Pressure 116/69 [Right Brachial artery] O2 Saturation 98 95 95 02/19/21 02/19/21 02/19/21 00:00 04:41 05:01 Temperature 37.0 C 36.3 C L 36.3 C L Heart Rate 60 Heart Rate [ 61 60 Brachial] Respiratory 16 16 16 Rate Blood Pressure Blood Pressure 100/60 106/62 [Right Brachial artery] O2 Saturation 96 97 97 02/19/21 08:17 Temperature 36.8 C Heart Rate Heart Rate [ 58 L Brachial] Respiratory 18 Rate Blood Pressure Blood Pressure 92/61 [Right Brachial artery] O2 Saturation 95 Oxygen O2 Source Room air I&O (Last 24 Hrs): Intake and Output Totals x24h 02/17/21 02/18/21 02/19/21 23:59 23:59 23:59 Intake Total 3136.448 6995.000 Balance 0813.286 4055.000 General: Alert, Oriented x3, Cooperative, No acute distress HEENT: PERRLA, Mucous membr. moist/pink Neck: Supple, No JVD Neuro: Alert, Oriented Times 3 Cardiovascular: Regular rate, No murmurs Respiratory: Chest non-tender, No respiratory distress, Breath sounds nml Abdomen: Soft, No masses, Other (Hypoactive bowel sounds. Right and left lower quadrants tender to palpation.) - Results Results: Laboratory Results WBC 12.6 x10^3/uL (4.8-10.8) H 02/19/21 05:18 RBC 3.95 10^6/uL (4.20-5.40) L 02/19/21 05:18 Hgb 12.5 g/dL (12.0-16.0) 02/19/21 05:18 Hct 39.1 % (37.0-47.0) 02/19/21 05:18 MCV 99.0 fL (81.0-99.0) 02/19/21 05:18 MCH 31.6 pg (27.0-31.0) H 02/19/21 05:18 MCHC 32.0 g/dL (32.0-36.0) 02/19/21 05:18 RDW 14.1 % (12.0-15.0) 02/19/21 05:18 Plt Count 197 10^3/uL (130-450) 02/19/21 05:18 MPV 10.8 fL (7.9-10.8) 02/19/21 05:18 Neut # (Auto) 8.4 10^3/uL (1.5-6.6) H 02/19/21 05:18 Lymph # (Auto) 2.5 10^3/uL (1.5-3.5) 02/19/21 05:18 Foster # (Auto) 1.4 10^3/uL (0.0-1.0) H 02/19/21 05:18 Eos # (Auto) 0.2 10^3/uL (0.0-0.7) 02/19/21 05:18 Baso # (Auto) 0.0 10^3/uL (0.0-0.1) 02/19/21 05:18 Absolute Nucleated RBC 0.00 x10^3/uL 02/19/21 05:18 Nucleated RBC % 0.0 /100WBC 02/19/21 05:18 Manual Slide Review Indicated 02/18/21 19:35 WBC Morphology NORMAL APPEARANCE (NORMAL) 02/18/21 19:35 Platelet Estimate NORMAL (130-450,000) (NORMAL) 02/18/21 19:35 Platelet Morphology NORMAL APPEARANCE (NORMAL) 02/18/21 19:35 RBC Morph Micro Appear NORMAL APPEARANCE (NORMAL) 02/18/21 19:35 Sodium 142 mmol/L (135-145) 02/19/21 05:18 Potassium 3.7 mmol/L (3.5-5.0) 02/19/21 05:18 Chloride 109 mmol/L (101-111) 02/19/21 05:18 Carbon Dioxide 24 mmol/L (21-32) 02/19/21 05:18 Anion Gap 9.0 (6-13) 02/19/21 05:18 BUN 17 mg/dL (6-20) 02/19/21 05:18 Creatinine 0.8 mg/dL (0.4-1.0) 02/19/21 05:18 Estimated GFR (MDRD) 72 (>89) L 02/19/21 05:18 Glucose 116 mg/dL (70-100) H 02/19/21 05:18 Lactic Acid 0.6 mmol/L (0.5-2.2) 02/18/21 22:05 Calcium 8.2 mg/dL (8.5-10.3) L 02/19/21 05:18 Phosphorus 2.8 mg/dL (2.5-4.6) 02/19/21 05:18 Magnesium 2.1 mg/dL (1.7-2.8) 02/19/21 05:18 Total Bilirubin 1.7 mg/dL (0.2-1.0) H 02/18/21 19:35 AST 23 IU/L (10-42) 02/18/21 19:35 ALT 21 IU/L (10-60) 02/18/21 19:35 Alkaline Phosphatase 62 IU/L (42-121) 02/18/21 19:35 Total Protein 7.6 g/dL (6.7-8.2) 02/18/21 19:35 Albumin 4.2 g/dL (3.2-5.5) 02/18/21 19:35 Globulin 3.4 g/dL (2.1-4.2) 02/18/21 19:35 Albumin/Globulin Ratio 1.2 (1.0-2.2) 02/18/21 19:35 Lipase 21 U/L (22-51) L 02/18/21 19:35 Urine Color YELLOW 02/18/21 19:26 Urine Clarity CLEAR (CLEAR) 02/18/21 19:26 Urine pH 6.0 PH (5.0-7.5) 02/18/21 19:26 Ur Specific Clayton 1.025 (1.002-1.030) 02/18/21 19:26 Urine Protein NEGATIVE mg/dL (NEGATIVE) 02/18/21 19:26 Urine Glucose (UA) NEGATIVE mg/dL (NEGATIVE) 02/18/21 19:26 Urine Ketones 40 mg/dL (NEGATIVE) H 02/18/21 19:26 Urine Occult Blood SMALL (NEGATIVE) H 02/18/21 19:26 Urine Nitrite NEGATIVE (NEGATIVE) 02/18/21 19:26 Urine Bilirubin NEGATIVE (NEGATIVE) 02/18/21 19:26 Urine Urobilinogen 0.2 (NORMAL) E.U./dL (NORMAL) 02/18/21 19:26 Ur Leukocyte Esterase NEGATIVE (NEGATIVE) 02/18/21 19:26 Urine RBC 0-5 /HPF (0-5) 02/18/21 19:26 Urine WBC 0-3 /HPF (0-5) 02/18/21 19:26 Ur Squamous Epith Cells RARE Squamous (<= Few) 02/18/21 19:26 Urine Bacteria Rare /HPF (None Seen) 02/18/21 19:26 Urine Mucus Few Strands 02/18/21 19:26 Ur Microscopic Review INDICATED 02/18/21 19:26 Urine Culture Comments NOT INDICATED 02/18/21 19:26 Nasal Adenovirus (PCR) NOT DETECTED 02/18/21 22:20 Nasal B. parapertussis DNA (PCR) NOT DETECTED 02/18/21 22:20 Nasal Coronavir 229E PCR NOT DETECTED 02/18/21 22:20 Nasal Coronavir HKU1 PCR NOT DETECTED 02/18/21 22:20 Nasal Coronavir NL63 PCR NOT DETECTED 02/18/21 22:20 Nasal Coronavir OC43 PCR NOT DETECTED 02/18/21 22:20 Nasal Enterovir/Rhinovir PCR NOT DETECTED 02/18/21 22:20 Nasal Influenza B PCR NOT DETECTED 02/18/21 22:20 Nasal Influenza A PCR NOT DETECTED 02/18/21 22:20 Nasal Parainfluen 1 PCR NOT DETECTED 02/18/21 22:20 Nasal Parainfluen 2 PCR NOT DETECTED 02/18/21 22:20 Nasal Parainfluen 3 PCR NOT DETECTED 02/18/21 22:20 Nasal Parainfluen 4 PCR NOT DETECTED 02/18/21 22:20 Nasal RSV (PCR) NOT DETECTED 02/18/21 22:20 Nasal B.pertussis DNA PCR NOT DETECTED 02/18/21 22:20 Nasal C.pneumoniae (PCR) NOT DETECTED 02/18/21 22:20 Moises Human Metapneumo PCR NOT DETECTED 02/18/21 22:20 Nasal M.pneumoniae (PCR) NOT DETECTED 02/18/21 22:20 Nasal SARS-CoV-2 (PCR) NOT DETECTED 02/18/21 22:20 - Procedures Procedures: Procedures EXCISION OF DESCENDING COLON, ENDO (10/11/18) EXCISION OF TRANSVERSE COLON, ENDO (10/11/18) <Demetra Marshall - Last Filed: 02/19/21 11:06> Vital Signs: Vital Signs - 24 hr 02/19/21 02/20/21 02/20/21 20:29 00:00 05:14 Temperature 36.8 C 36.8 C 36.7 C Heart Rate [ 73 55 L 52 L Brachial] Respiratory 16 18 16 Rate Blood Pressure 105/66 103/64 113/52 L [Right Brachial artery] O2 Saturation 95 97 96 02/20/21 02/20/21 02/20/21 07:25 13:00 16:14 Temperature 36.7 C 36.7 C 36.6 C Heart Rate [ 59 L 57 L 53 L Brachial] Respiratory 20 18 16 Rate Blood Pressure 106/64 124/66 109/61 [Right Brachial artery] O2 Saturation 95 95 97 Oxygen O2 Source Room air I&O (Last 24 Hrs): Intake and Output Totals x24h 02/18/21 02/19/21 02/20/21 23:59 23:59 23:59 Intake Total 1204.453 6592.000 1970.667 Output Total 2 Balance 4560.226 8697.000 1968.667 - Results Results: Laboratory Results WBC 8.4 x10^3/uL (4.8-10.8) 02/20/21 05:29 RBC 3.75 10^6/uL (4.20-5.40) L 02/20/21 05:29 Hgb 12.0 g/dL (12.0-16.0) 02/20/21 05:29 Hct 37.6 % (37.0-47.0) 02/20/21 05:29 MCV 100.3 fL (81.0-99.0) H 02/20/21 05:29 MCH 32.0 pg (27.0-31.0) H 02/20/21 05:29 MCHC 31.9 g/dL (32.0-36.0) L 02/20/21 05:29 RDW 14.2 % (12.0-15.0) 02/20/21 05:29 Plt Count 193 10^3/uL (130-450) 02/20/21 05:29 MPV 11.5 fL (7.9-10.8) H 02/20/21 05:29 Neut # (Auto) 4.6 10^3/uL (1.5-6.6) 02/20/21 05:29 Lymph # (Auto) 2.4 10^3/uL (1.5-3.5) 02/20/21 05:29 Foster # (Auto) 0.9 10^3/uL (0.0-1.0) 02/20/21 05:29 Eos # (Auto) 0.4 10^3/uL (0.0-0.7) 02/20/21 05:29 Baso # (Auto) 0.0 10^3/uL (0.0-0.1) 02/20/21 05:29 Absolute Nucleated RBC 0.00 x10^3/uL 02/20/21 05:29 Nucleated RBC % 0.0 /100WBC 02/20/21 05:29 Manual Slide Review Indicated 02/18/21 19:35 WBC Morphology NORMAL APPEARANCE (NORMAL) 02/18/21 19:35 Platelet Estimate NORMAL (130-450,000) (NORMAL) 02/18/21 19:35 Platelet Morphology NORMAL APPEARANCE (NORMAL) 02/18/21 19:35 RBC Morph Micro Appear NORMAL APPEARANCE (NORMAL) 02/18/21 19:35 Sodium 143 mmol/L (135-145) 02/20/21 05:29 Potassium 3.9 mmol/L (3.5-5.0) 02/20/21 05:29 Chloride 112 mmol/L (101-111) H 02/20/21 05:29 Carbon Dioxide 25 mmol/L (21-32) 02/20/21 05:29 Anion Gap 6.0 (6-13) 02/20/21 05:29 BUN 14 mg/dL (6-20) 02/20/21 05:29 Creatinine 0.7 mg/dL (0.4-1.0) 02/20/21 05:29 Estimated GFR (MDRD) 84 (>89) L 02/20/21 05:29 Glucose 103 mg/dL (70-100) H 02/20/21 05:29 Lactic Acid 0.6 mmol/L (0.5-2.2) 02/18/21 22:05 Calcium 8.1 mg/dL (8.5-10.3) L 02/20/21 05:29 Phosphorus 2.8 mg/dL (2.5-4.6) 02/19/21 05:18 Magnesium 2.1 mg/dL (1.7-2.8) 02/19/21 05:18 Total Bilirubin 1.7 mg/dL (0.2-1.0) H 02/18/21 19:35 AST 23 IU/L (10-42) 02/18/21 19:35 ALT 21 IU/L (10-60) 02/18/21 19:35 Alkaline Phosphatase 62 IU/L (42-121) 02/18/21 19:35 Total Protein 7.6 g/dL (6.7-8.2) 02/18/21 19:35 Albumin 4.2 g/dL (3.2-5.5) 02/18/21 19:35 Globulin 3.4 g/dL (2.1-4.2) 02/18/21 19:35 Albumin/Globulin Ratio 1.2 (1.0-2.2) 02/18/21 19:35 Lipase 21 U/L (22-51) L 02/18/21 19:35 Urine Color YELLOW 02/18/21 19:26 Urine Clarity CLEAR (CLEAR) 02/18/21 19:26 Urine pH 6.0 PH (5.0-7.5) 02/18/21 19:26 Ur Specific Clayton 1.025 (1.002-1.030) 02/18/21 19:26 Urine Protein NEGATIVE mg/dL (NEGATIVE) 02/18/21 19:26 Urine Glucose (UA) NEGATIVE mg/dL (NEGATIVE) 02/18/21 19:26 Urine Ketones 40 mg/dL (NEGATIVE) H 02/18/21 19:26 Urine Occult Blood SMALL (NEGATIVE) H 02/18/21 19:26 Urine Nitrite NEGATIVE (NEGATIVE) 02/18/21 19:26 Urine Bilirubin NEGATIVE (NEGATIVE) 02/18/21 19:26 Urine Urobilinogen 0.2 (NORMAL) E.U./dL (NORMAL) 02/18/21 19:26 Ur Leukocyte Esterase NEGATIVE (NEGATIVE) 02/18/21 19:26 Urine RBC 0-5 /HPF (0-5) 02/18/21 19:26 Urine WBC 0-3 /HPF (0-5) 02/18/21 19:26 Ur Squamous Epith Cells RARE Squamous (<= Few) 02/18/21 19:26 Urine Bacteria Rare /HPF (None Seen) 02/18/21 19:26 Urine Mucus Few Strands 02/18/21 19:26 Ur Microscopic Review INDICATED 02/18/21 19:26 Urine Culture Comments NOT INDICATED 02/18/21 19:26 Nasal Adenovirus (PCR) NOT DETECTED 02/18/21 22:20 Nasal B. parapertussis DNA (PCR) NOT DETECTED 02/18/21 22:20 Nasal Coronavir 229E PCR NOT DETECTED 02/18/21 22:20 Nasal Coronavir HKU1 PCR NOT DETECTED 02/18/21 22:20 Nasal Coronavir NL63 PCR NOT DETECTED 02/18/21 22:20 Nasal Coronavir OC43 PCR NOT DETECTED 02/18/21 22:20 Nasal Enterovir/Rhinovir PCR NOT DETECTED 02/18/21 22:20 Nasal Influenza B PCR NOT DETECTED 02/18/21 22:20 Nasal Influenza A PCR NOT DETECTED 02/18/21 22:20 Nasal Parainfluen 1 PCR NOT DETECTED 02/18/21 22:20 Nasal Parainfluen 2 PCR NOT DETECTED 02/18/21 22:20 Nasal Parainfluen 3 PCR NOT DETECTED 02/18/21 22:20 Nasal Parainfluen 4 PCR NOT DETECTED 02/18/21 22:20 Nasal RSV (PCR) NOT DETECTED 02/18/21 22:20 Nasal B.pertussis DNA PCR NOT DETECTED 02/18/21 22:20 Nasal C.pneumoniae (PCR) NOT DETECTED 02/18/21 22:20 Moises Human Metapneumo PCR NOT DETECTED 02/18/21 22:20 Nasal M.pneumoniae (PCR) NOT DETECTED 02/18/21 22:20 Nasal SARS-CoV-2 (PCR) NOT DETECTED 02/18/21 22:20 - Procedures Procedures: Procedures EXCISION OF DESCENDING COLON, ENDO (10/11/18) EXCISION OF TRANSVERSE COLON, ENDO (10/11/18) <Britney David - Last Filed: 02/20/21 17:38> ABX Reporting Has patient been on IV antibiotics over the past 48 hours?: Yes <Demetra Marshall - Last Filed: 02/19/21 11:06>
[2021-02-19] MEDS: CIPROFLOXACIN 400 MG/200 ML 400 MG/200 ML BAG IV SCH ×2 (09:55→23:55)
--- NOTE | 2021-02-19 11:32 | PHARMACY PROGRESS NOTE ---
- Best Possible Medication History Admit Date and Time: 02/18/212151 Processed by: Pharmacy Medication History completed: Yes Patient Interview: Completed (PATIENT ABLE TO CONFIRM HOME MEDICATIONS) As the person ultimately responsible for medication therapy, providers are able to order a medication from an existing home medication list in [facility] via the "Reconcile Routine" prior to Confirmation of that medication by desktop support associate. Such practice is discouraged except when the physician, in their clinical judgment, deems that a medical need exists for a medication without regard to previous use.
--- NOTE | 2021-02-19 14:01 | CONSULTATION NOTE ---
Referring Provider Consult Date: 02/19/21 Chief Complaint - Chief Complaint Chief Complaint: Abdominal pain History of Present Illness - Admitted From Admitted From:: ED - History Obtained From Records Reviewed: yes History obtained from: pt Exam Limitations: none - History of Present Illness HPI Comment/Other: She first had diverticulitis about 15 years ago. Her last episode before this current episode of diverticulitis was about 9 months ago. In the past she would have a flare about every 2 years. She has now had diverticulitis 5 to 6 times. She is feeling better today. No appetite however. She denies nausea. She is passing gas today. 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 Her parents do not have diverticulitis but her sister does. Her one child does not have diverticulitis. Living arrangement: At home Living Situation: With spouse/s.o. Social History Notes: She has 1 adult child who is healthy. She is a non-smoker who quit 30 years ago. She drinks 1 glass of wine per day. There is no illicit drug use history. 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 She is active around the house, currently doing remodeling with her . - Substance History Use: Uses substance without health or social issues: Alcohol Meds/Allgy - Home Medications Home Medications: Ambulatory Orders Medication Instructions Recorded Confirmed Fluticasone [Flonase] 1 applic INH DAILY PRN 10/14/17 02/19/21 Omeprazole [PriLOSEC] 40 mg PO QPM 10/14/17 02/19/21 C,E,Zinc,Copper 11/Zdwnn7s/Lut 1 each PO DAILY 10/11/18 02/19/21 [Ocuvite Adult 50 Plus Softgel] Cholecalciferol (Vitamin D3) 5,000 unit PO DAILY 10/11/18 02/19/21 [Vitamin D3] Lactobacillus Acidophilus 1 each PO DAILY 10/11/18 02/19/21 [Probiotic Acidophilus] Mometasone Furoate [Asmanex] 220 mcg IH BID PRN 10/11/18 02/19/21 Denosumab [Prolia] 60 mg SUBQ .[id number] 02/19/21 02/19/21 - Allergies Allergies/Adverse Reactions: Allergies Allergy/AdvReac Type Severity Reaction Status Date / Time Iodinated Contrast Media Allergy Anaphylaxis Verified 02/18/21 19:11 [Iodinated Contrast- Oral and IV Dye] Sulfa (Sulfonamide Allergy Anaphylaxis Verified 02/18/21 19:11 Antibiotics) Review of Systems - Other Findings Other Findings: 10 pt ros as above otherwise unremarkable Exam - Vital Signs Reviewed Vital Signs: Yes Vital Signs: Vital Signs x48h Temp Pulse Pulse Resp BP Pulse Ox 02/19/21 13:00 37.0 C 56 L 18 93/56 L 96 02/19/21 12:22 3638 C H 58 L 16 98 02/19/21 08:17 36.8 C 58 L 18 92/61 95 - Physical Exam General Appearance: positive: No acute distress, Alert Eyes Bilateral: positive: PERRL, EOMI ENT: positive: No signs of dehydration Neck: positive: No JVD Respiratory: positive: No respiratory distress Abdomen: positive: No distention, Other (minimal left lower quadrant tenderness. no peritoneal signs) Neurologic/Psychiatric: positive: Oriented x3 Conclusion/Plan - Problem List (1) Sigmoid diverticulitis Conclusion/Plan: She is feeling better. No appetite yet. She prefers just ice chips and sips. Agree with care Perhaps clears tomorrow. We discussed elective surgery for recurrent diverticulitis is indicated and she should consider this. I have recommend she see a colorectal surgeon for elective surgery after this current bout of diverticulitis has improved and she has been discharged. - Lab Results Fish Bones: 02/19/21 05:18 02/19/21 05:18 - Diagnostic Imaging Results Diagnostic Imaging Results: positive: Read independently
[2021-02-20] MEDS: SODIUM CHLORIDE FLUSH 0.9% 10 ML SYRINGE IVP SCH ×3 (02:16→17:09)
[2021-02-20] MEDS: metroNIDAZOLE 500 MG/100 ML 500 MG/100 ML BAG IV SCH ×3 (04:47→20:37)
[2021-02-20 06:27] LABS: BASOPHILS % (AUTO) 0.5 %; EOSINOPHILS # (AUTO) 0.4 10^3/uL (0.0-0.7); HCT - HEMATOCRIT 37.6 % (37.0-47.0); LYMPHOCYTES # (AUTO) 2.4 10^3/uL (1.5-3.5); LYMPHOCYTES % (AUTO) 28.5 %; MEAN CORPUSCULAR HGB CONC 31.9 g/dL (32.0-36.0); MEAN CORPUSCULAR VOLUME 100.3 fL (81.0-99.0); MEAN PLATELET VOLUME 11.5 fL (7.9-10.8); MONOCYTES # (AUTO) 0.9 10^3/uL (0.0-1.0); MONOCYTES % (AUTO) 10.9 %; NEUTROPHILS # (AUTO) 4.6 10^3/uL (1.5-6.6); NEUTROPHILS % (AUTO) 54.9 %; PLT - PLATELET COUNT 193 10^3/uL (130-450); RED BLOOD COUNT 3.75 10^6/uL (4.20-5.40); RED CELL DISTRIBUTION WIDTH 14.2 % (12.0-15.0); WHITE BLOOD COUNT 8.4 x10^3/uL (4.8-10.8)
[2021-02-20] MEDS: KETOROLAC 15 MG/ML VIAL IVP PRN (06:33)
[2021-02-20 06:37] LABS: CALCIUM 8.1 mg/dL (8.5-10.3); CREATININE 0.7 mg/dL (0.4-1.0); POTASSIUM 3.9 mmol/L (3.5-5.0)
[2021-02-20] MEDS: FAMOTIDINE 20 MG/2 ML VIAL IVP SCH ×2 (08:40→20:37)
[2021-02-20] MEDS: ONDANSETRON 4 MG/2 ML VIAL IVP PRN (09:18)
[2021-02-20] MEDS: D5NS W/20 MEQ KCL 1,000 ML IV SCH ×2 (09:48→21:52)
[2021-02-20] MEDS: CIPROFLOXACIN 400 MG/200 ML 400 MG/200 ML BAG IV SCH ×2 (09:48→21:52)
[2021-02-20] MEDS ORDERED: MORPHINE 2 MG/ML CARPUJECT IVP PRN (10:36)
[2021-02-20] MEDS: PROCHLORPERAZINE 10 MG/2 ML VIAL IVP PRN (12:29)
--- NOTE | 2021-02-20 14:43 | PROVIDER PROGRESS NOTE ---
Assessment/Plan - Problem List (1) Bowel perforation Assessment/Plan: Case was discussed with Dr. Quiroz today who determined that the abdominal CT does not show a perforation but a deep diverticuli. He is recommending advancing diet as tolerated and to follow up outpatient for elective colectomy. Diet has been advanced to clear liquid diet. She is experiencing nausea and mid abdominal pain after eating approximately 100ml of clear liquid diet. Plan: Continue with IV antibiotic therapy, Cipro and Flagyl. Administer antiemetics, zofran and companzine as needed for nausea. If pain and nausea persist, consider repeat abdominal CT Continue to consult surgeon as needed. Advance diet as tolerated. (2) Sigmoid diverticulitis Assessment/Plan: Fevers have resolved. WBC have decreased from 19.1 to 8.4 today. Initial bilirubin was elevated 1.7, this is most likely due to divertiulitis since liver enzymes are normal and no pathological cause was identified on on the CT. Imaging did show moderate diverticulitis of the sigmoid colon. Preliminary blood cultures sent from ED are currently negative. Plan: Advance diet as tolerated. Continue IV fluids D5 + 20KCL until able to tolerate PO. Continue empiric IV antibiotics with Cipro and Flagyl. Continue with IV Toradol for pain management. Morphine IV added for pain management. Continue to monitor WBC and temperature. Repeat the bilirubin to monitor trend. (3) N&V (nausea and vomiting) Assessment/Plan: Patient intially reported that nausea and abdominal pain had resolved. After 100 mls of clear liquid lunch patient had episode of abdominal pain 8/10 with assoc iated nausea and retching. Nausea resolved with Compazine and morphine IV added for pain management. She is now resting comfortably. Plan: Continue with clear liquid diet and advance as tolerated to soft/ bland diet. Continue with IV D5 +20KCL until able to advance diet. Monitor BMP, Ca, Mg, PO4 daily and replace if low. (4) Prerenal azotemia Assessment/Plan: Initial BUN/ Creat 23/0.8 is improved today 14/0.7. Likely related to dehydration from N/V. Plan: Avoid nephrotoxins. Continue with IV fluids D5 +20KCL. Follow BMP daily. (5) Hx of gastroesophageal reflux (GERD) Assessment/Plan: Patient has history of GERD and takes Prilosec outpatient. Plan: Continue with IV Pepcid twice daily. - Current Meds Current Meds: Current Medications Generic Name Dose Route Start Last Admin Trade Name Freq PRN Reason Stop Dose Admin Famotidine 20 mg 02/18/21 23:00 02/20/21 08:40 Famotidine 20 Mg/2 Ml Vial IVP 20 mg BID PATTIE Administration Potassium Chloride/Dextrose/Sod Cl 1,000 mls @ 100 mls/hr 02/18/21 22:00 02/20/21 10:58 D5ns W/20 Meq Kcl IV 100 mls/hr .Q10H PATTIE Infusion Ciprofloxacin 400 mg in 200 mls @ 200 mls/hr 02/19/21 10:00 02/20/21 10:50 Cipro 400 Mg/200 Ml IV Infused Q12H PATTIE Infusion Metronidazole 500 mg in 100 mls @ 100 mls/hr 02/19/21 05:00 02/20/21 13:45 Flagyl 500 Mg/100 Ml IV Infused Q8H PATTIE Infusion Ketorolac Tromethamine 15 mg 02/18/21 21:57 02/20/21 06:33 Ketorolac 15 Mg/Ml Vial IVP 02/23/21 21:56 15 mg Q6HR PRN Administration PAIN Morphine Sulfate 2 mg 02/20/21 10:36 02/20/21 12:21 Morphine 2 Mg/Ml Carpuject IVP 2 mg Q2HR PRN Administration PAIN Ondansetron HCl 4 mg 02/18/21 21:52 02/20/21 09:18 Ondansetron 4 Mg/2 Ml Vial IVP 4 mg Q6HR PRN Administration Nausea / Vomiting Prochlorperazine Edisylate 10 mg 02/18/21 21:52 02/20/21 12:29 Prochlorperazine 10 Mg/2 Ml Vial IVP 10 mg Q6HR PRN Administration Nausea / Vomiting Sodium Chloride 10 ml 02/18/21 21:52 02/20/21 12:22 Sodium Chloride Flush 0.9% 10 Ml Syringe IVP 10 ml PRN PRN Administration NEEDED PER PROVIDER ORDERS Sodium Chloride 10 ml 02/19/21 01:00 02/20/21 08:40 Sodium Chloride Flush 0.9% 10 Ml Syringe IVP 10 ml 0100,0900,1700 PATTIE Administration - Lab Result Fish Bone Diagrams: 02/20/21 05:29 02/20/21 05:29 Subjective - Subjective Patient Reports: Feeling Better, Resting Comfortably, Abdominal Pain, Constipation Nursing Reports: Nausea (Patient was resting in bed. Reports feeling better but not well. Concerned over urge to have bowel movement and if it is safe to bare down. Reports diminished appetite.) Objective Vital Signs: Vital Signs - 24 hr 02/19/21 02/19/21 02/20/21 17:00 20:29 00:00 Temperature 36.9 C 36.8 C 36.8 C Heart Rate [ 59 L 73 55 L Brachial] Respiratory 18 16 18 Rate Blood Pressure 97/64 105/66 103/64 [Right Brachial artery] O2 Saturation 96 95 97 02/20/21 02/20/21 02/20/21 05:14 07:25 13:00 Temperature 36.7 C 36.7 C 36.7 C Heart Rate [ 52 L 59 L 57 L Brachial] Respiratory 16 20 18 Rate Blood Pressure 113/52 L 106/64 124/66 [Right Brachial artery] O2 Saturation 96 95 95 Oxygen O2 Source Room air I&O (Last 24 Hrs): Intake and Output Totals x24h 02/18/21 02/19/21 02/20/21 23:59 23:59 23:59 Intake Total 8215.278 2044.000 1971.667 Output Total 2 Balance 6769.015 6513.000 1969.667 General: Alert, Oriented x3, Cooperative, No acute distress HEENT: EOMI Neck: Supple, No JVD Neuro: Alert, Oriented Times 3 Cardiovascular: Regular rate, Normal S1, Normal S2, No murmurs Respiratory: Chest non-tender, No respiratory distress, Breath sounds nml Abdomen: Soft, Other (Hypoactive bowel sounds. Generalized abdominal te nderness.) Extremities: No edema Skin: No rashes - Results Results: Laboratory Results WBC 8.4 x10^3/uL (4.8-10.8) 02/20/21 05:29 RBC 3.75 10^6/uL (4.20-5.40) L 02/20/21 05:29 Hgb 12.0 g/dL (12.0-16.0) 02/20/21 05:29 Hct 37.6 % (37.0-47.0) 02/20/21 05:29 MCV 100.3 fL (81.0-99.0) H 02/20/21 05:29 MCH 32.0 pg (27.0-31.0) H 02/20/21 05:29 MCHC 31.9 g/dL (32.0-36.0) L 02/20/21 05: RDW 14.2 % (12.0-15.0) 02/20/21 05:29 Plt Count 193 10^3/uL (130-450) 02/20/21 05:29 MPV 11.5 fL (7.9-10.8) H 02/20/21 05:29 Neut # (Auto) 4.6 10^3/uL (1.5-6.6) 02/20/21 05:29 Lymph # (Auto) 2.4 10^3/uL (1.5-3.5) 02/20/21 05:29 [place] # (Auto) 0.9 10^3/uL (0.0-1.0) 02/20/21 05:29 Eos # (Auto) 0.4 10^3/uL (0.0-0.7) 02/20/21 05:29 Baso # (Auto) 0.0 10^3/uL (0.0-0.1) 02/20/21 05:29 Absolute Nucleated RBC 0.00 x10^3/uL 02/20/21 05: Nucleated RBC % 0.0 /100WBC 02/20/21 05:29 Manual Slide Review Indicated 02/18/21 19:35 WBC Morphology NORMAL APPEARANCE (NORMAL) 02/18/21 19:35 Platelet Estimate NORMAL (130-450,000) (NORMAL) 02/18/21 19:35 Platelet Morphology NORMAL APPEARANCE (NORMAL) 02/18/21 19:35 RBC Morph Micro Appear NORMAL APPEARANCE (NORMAL) 02/18/21 19:35 Sodium 143 mmol/L (135-145) 02/20/21 05:29 Potassium 3.9 mmol/L (3.5-5.0) 02/20/21 05:29 Chloride 112 mmol/L (101-111) H 02/20/21 05:29 Carbon Dioxide 25 mmol/L (21-32) 02/20/21 05:29 Anion Gap 6.0 (6-13) 02/20/21 05:29 BUN 14 mg/dL (6-20) 02/20/21 05:29 Creatinine 0.7 mg/dL (0.4-1.0) 02/20/21 05:29 Estimated GFR (MDRD) 84 (>89) L 02/20/21 05:29 Glucose 103 mg/dL (70-100) H 02/20/21 05:29 Lactic Acid 0.6 mmol/L (0.5-2.2) 02/18/21 22:05 Calcium 8.1 mg/dL (8.5-10.3) L 02/20/21 05:29 Phosphorus 2.8 mg/dL (2.5-4.6) 02/19/21 05:18 Magnesium 2.1 mg/dL (1.7-2.8) 02/19/21 05:18 Total Bilirubin 1.7 mg/dL (0.2-1.0) H 02/18/21 19:35 AST 23 IU/L (10-42) 02/18/21 19:35 ALT 21 IU/L (10-60) 02/18/21 19:35 Alkaline Phosphatase 62 IU/L (42-121) 02/18/21 19:35 Total Protein 7.6 g/dL (6.7-8.2) 02/18/21 19:35 Albumin 4.2 g/dL (3.2-5.5) 02/18/21 19:35 Globulin 3.4 g/dL (2.1-4.2) 02/18/21 19:35 Albumin/Globulin Ratio 1.2 (1.0-2.2) 02/18/21 19:35 Lipase 21 U/L (22-51) L 02/18/21 19:35 Urine Color YELLOW 02/18/21 19:26 Urine Clarity CLEAR (CLEAR) 02/18/21 19:26 Urine pH 6.0 PH (5.0-7.5) 02/18/21 19:26 Ur Specific [place] 1.025 (1.002-1.030) 02/18/21 19:26 Urine Protein NEGATIVE mg/dL (NEGATIVE) 02/18/21 19:26 Urine Glucose (UA) NEGATIVE mg/dL (NEGATIVE) 02/18/21 19:26 Urine Ketones 40 mg/dL (NEGATIVE) H 02/18/21 19:26 Urine Occult Blood SMALL (NEGATIVE) H 02/18/21 19:26 Urine Nitrite NEGATIVE (NEGATIVE) 02/18/21 19:26 Urine Bilirubin NEGATIVE (NEGATIVE) 02/18/21 19:26 Urine Urobilinogen 0.2 (NORMAL) E.U./dL (NORMAL) 02/18/21 19:26 Ur Leukocyte Esterase NEGATIVE (NEGATIVE) 02/18/21 19:26 Urine RBC 0-5 /HPF (0-5) 02/18/21 19:26 Urine WBC 0-3 /HPF (0-5) 02/18/21 19:26 Ur Squamous Epith Cells RARE Squamous (<= Few) 02/18/21 19:26 Urine Bacteria Rare /HPF (None Seen) 02/18/21 19:26 Urine Mucus Few Strands 02/18/21 19:26 Ur Microscopic Review INDICATED 02/18/21 19:26 Urine Culture Comments NOT INDICATED 02/18/21 19:26 Nasal Adenovirus (PCR) NOT DETECTED 02/18/21 22:20 Nasal B. parapertussis DNA (PCR) NOT DETECTED 02/18/21 22:20 Nasal Coronavir 229E PCR NOT DETECTED 02/18/21 22:20 Nasal Coronavir HKU1 PCR NOT DETECTED 02/18/21 22:20 Nasal Coronavir NL63 PCR NOT DETECTED 02/18/21 22:20 Nasal Coronavir OC43 PCR NOT DETECTED 02/18/21 22:20 Nasal Enterovir/Rhinovir PCR NOT DETECTED 02/18/21 22:20 Nasal Influenza B PCR NOT DETECTED 02/18/21 22:20 Nasal Influenza A PCR NOT DETECTED 02/18/21 22:20 Nasal Parainfluen 1 PCR NOT DETECTED 02/18/21 22:20 Nasal Parainfluen 2 PCR NOT DETECTED 02/18/21 22:20 Nasal Parainfluen 3 PCR NOT DETECTED 02/18/21 22:20 Nasal Parainfluen 4 PCR NOT DETECTED 02/18/21 22:20 Nasal RSV (PCR) NOT DETECTED 02/18/21 22:20 Nasal B.pertussis DNA PCR NOT DETECTED 02/18/21 22:20 Nasal C.pneumoniae (PCR) NOT DETECTED 02/18/21 22:20 Moises Human Metapneumo PCR NOT DETECTED 02/18/21 22:20 Nasal M.pneumoniae (PCR) NOT DETECTED 02/18/21 22:20 Nasal SARS-CoV-2 (PCR) NOT DETECTED 02/18/21 22:20 - Procedures Procedures: Procedures EXCISION OF DESCENDING COLON, ENDO (10/11/18) EXCISION OF TRANSVERSE COLON, ENDO (10/11/18) ABX Reporting Has patient been on IV antibiotics over the past 48 hours?: Yes
[2021-02-21] MEDS ORDERED: MIN OIL/DIMETHICON/COCONUT OIL 92 GM TUBE TOP PRN (02:36)
[2021-02-21] MEDS: SODIUM CHLORIDE FLUSH 0.9% 10 ML SYRINGE IVP SCH ×2 (02:43→08:44)
[2021-02-21] MEDS: metroNIDAZOLE 500 MG/100 ML 500 MG/100 ML BAG IV SCH (04:54)
[2021-02-21 06:03] LABS: BASOPHILS # (AUTO) 0.1 10^3/uL (0.0-0.1); BASOPHILS % (AUTO) 0.7 %; EOSINOPHILS # (AUTO) 0.5 10^3/uL (0.0-0.7); EOSINOPHILS % (AUTO) 6.3 %; HCT - HEMATOCRIT 37.7 % (37.0-47.0); HGB - HEMOGLOBIN 11.8 g/dL (12.0-16.0); LYMPHOCYTES # (AUTO) 2.4 10^3/uL (1.5-3.5); LYMPHOCYTES % (AUTO) 33.9 %; MEAN CORPUSCULAR HEMOGLOBIN 31.4 pg (27.0-31.0); MEAN CORPUSCULAR HGB CONC 31.3 g/dL (32.0-36.0); MEAN CORPUSCULAR VOLUME 100.3 fL (81.0-99.0); MEAN PLATELET VOLUME 10.5 fL (7.9-10.8); MONOCYTES # (AUTO) 0.7 10^3/uL (0.0-1.0); MONOCYTES % (AUTO) 10.1 %; NEUTROPHILS # (AUTO) 3.5 10^3/uL (1.5-6.6); NEUTROPHILS % (AUTO) 48.7 %; PLT - PLATELET COUNT 222 10^3/uL (130-450); RED BLOOD COUNT 3.76 10^6/uL (4.20-5.40); RED CELL DISTRIBUTION WIDTH 13.9 % (12.0-15.0); WHITE BLOOD COUNT 7.2 x10^3/uL (4.8-10.8)
[2021-02-21 06:09] LABS: CALCIUM 8.2 mg/dL (8.5-10.3); CREATININE 0.7 mg/dL (0.4-1.0); POTASSIUM 4.1 mmol/L (3.5-5.0)
[2021-02-21 07:47] VITALS: BP 136/79
[2021-02-21] MEDS: ONDANSETRON 4 MG/2 ML VIAL IVP PRN (08:10)
[2021-02-21] MEDS: FAMOTIDINE 20 MG/2 ML VIAL IVP SCH (08:44)
[2021-02-21] MEDS: CIPROFLOXACIN 400 MG/200 ML 400 MG/200 ML BAG IV SCH (09:57)
--- NOTE | 2021-02-21 10:22 | DISCHARGE SUMMARY ---
Discharge Summary Admit Date: 02/18/21 Discharge Date: 02/21/21 Discharging Provider: Britney David Primary Care Provider: Marlene Hernandes Code Status: Attempt Resuscitation Condition at Discharge: Stable Discharge Disposition: 01 Home, Self Care - DIAGNOSES Admission Diagnoses: Sigmoid diverticulitis Bowel perforation Nausea and vomiting Prerenal acidemia History of GERD Allergy to IVP Dye Discharge Diagnoses with Status of Each Condition: Sigmoid diverticulitis: Acute. Recurrent. Patient was treated with IV antibiotics. Discharged home on p.o. Augmentin twice daily x1 week Bowel perforation: The CT of the abdomen and pelvis was reviewed by the general surgeon and determined not to be present. Nausea and vomiting: Acute. Improving. Patient discharged with a prescription of Zofran ODT Prerenal acidemia: Acute. Resolved History of GERD: Chronic. Continue home medication - HPI History of Present Illness: This is a 65-year-old white female with history of GERD, osteoporosis and 5 prior episodes of diverticulitis, managed with oral antibiotics. Today she went to the [place] walk-in clinic complaining of severe lower abdominal pain, nausea and vomiting, was constipated for several days then had passed a pebble-like hard stool, not normal for her. [facility], she was found to have a low-grade fever and sent to the ED. In the ED, her exam showed tenderness of the abdomen but a nonsurgical belly. CT imaging showed extensive diverticulosis with diverticulitis of the sigmoid colon and a contained perforation, no abscess and no free air. White blood count elevated at 19. The ED provider reached out to the General Surgeon on-call, Dr. Quiroz, who stated that this problem could be handled here and advised admission to Hospitalist service and General Surgery to follow as consultants. Her CODE status is Full Code. - HOSPITAL COURSE Hospital Course: Patient was started on IV hydration with normal saline and IV Cipro and Flagyl. The Cipro and Flagyl was maintained for 3-day duration.. This was the duration of her hospital stay. The patient's white blood cell count improved steadily over the course of this 3 days. By the time of discharge her white blood cell count was 7.3. Her fever resolved. Her pain was managed with Tylenol and nausea with Zofran. She was also seen by general surgery Dr. Eduardo Quiroz. He reviewed the CT of the abdomen pelvis and determined that there was no perforation. He advised advancing diet as tolerated. The patient tolerated a clear liquid diet on the day of discharge and was agreeable to discharge to advance diet at home as tolerated on her own. Dr. Quiroz advised outpatient follow-up with him in a couple of weeks. He strongly advises elective surgery given the frequency of recurrence of patient's diverticulitis. And was discharged home in stable condition with a prescription of Augmentin 875/125 p.o. twice daily x7 days. She was also prescribed Zofran ODT every 6 hours as needed for nausea. She was also advised to use Tylenol as needed for pain. The rest of her hospital stay was unremarkable - ALLERGIES Allergies/Adverse Reactions: Allergies Allergy/AdvReac Type Severity Reaction Status Date / Time Iodinated Contrast Media Allergy Anaphylaxis Verified 02/18/21 19:11 [Iodinated Contrast- Oral and IV Dye] Sulfa (Sulfonamide Allergy Anaphylaxis Verified 02/18/21 19:11 Antibiotics) - MEDICATIONS Home Medications: Ambulatory Orders Medication Instructions Recorded Confirmed Fluticasone [Flonase] 1 applic INH DAILY PRN 10/14/17 02/19/21 Omeprazole [PriLOSEC] 40 mg PO QPM 10/14/17 02/19/21 C,E,Zinc,Copper 11/Jnqyo6f/Lut 1 each PO DAILY 10/11/18 02/19/21 [Ocuvite Adult 50 Plus Softgel] Cholecalciferol (Vitamin D3) 5,000 unit PO DAILY 10/11/18 02/19/21 [Vitamin D3] Lactobacillus Acidophilus 1 each PO DAILY 10/11/18 02/19/21 [Probiotic Acidophilus] Mometasone Furoate [Asmanex] 220 mcg IH BID PRN 10/11/18 02/19/21 Denosumab [Prolia] 60 mg SUBQ .[id number] 02/19/21 02/19/21 Amox/Clav 875/125 [Augmentin 1 tablet PO BID 7 Days #14 tablet 02/21/21 875/125 Tab] Ondansetron Odt [Zofran Odt] 4 mg TL Q6H PRN 20 Days #10 tablet 02/21/21 - PHYSICAL EXAM AT DISCHARGE General Appearance: positive: Alert, Mild distress Eyes Bilateral: positive: PERRL, EOMI ENT: positive: No signs of dehydration Neck: positive: No JVD, Trachea midline Respiratory: positive: Chest non-tender, No respiratory distress. negative: Wheezes, Rales, Rhonchi Cardiovascular: positive: Regular rate & rhythm, No murmur Abdomen: positive: Nml bowel sounds (Mild Tenderness. Slight blooating), Tenderness Rectal: negative: Bloody stool Back: positive: Nml inspection Skin: positive: Color nml, No rash, Warm, Dry Extremities: positive: Non-tender, Full ROM, Other (Non-pitting edema in left upper extremity due to IV line) - LABS Result Diagrams: 02/21/21 05:40 02/21/21 05:40 - TIME SPENT Time Spent in Discharge (Minutes): 20
--- NOTE | 2021-02-21 10:29 | Discharge Plan ---
Discharge Plan Problem Reviewed?: Yes Disposition: Home, Self Care Condition: Stable Prescriptions: Amox/Clav 875/125 [Augmentin 875/125 Tab] 1 tablet PO BID 7 Days #14 tablet Ondansetron Odt [Zofran Odt] 4 mg TL Q6H PRN 20 Days #10 tablet PRN Reason: Nausea / Vomiting Diet: Soft Activity Restrictions: Activity as Tolerated Health Concerns: You were admitted 3 days ago with abdominal pain, nausea and vomiting for which work-up showed that you had diverticulitis. You have experienced several episodes of diverticulitis in the past managed with oral antibiotics. You were started on Cipro and Flagyl antibiotics intravenously. This was maintained for 3 days. Your white blood cell count and fever improved/resolved over the course of this 3 days. You tolerated a clear liquid diet on the day of discharge. You are being discharged on 02/21/2021 with a prescription of Augmentin 875/125 p.o. twice daily for 7 days. You are to advance your diet at home as tolerated. If you have worsening pain you may take Tylenol and ibuprofen as needed. You were also prescribed Zofran ODT for nausea. You were seen by the general surgeon who recommended outpatient follow-up in a few weeks and also strongly advised consideration for elective surgery given the frequency of diverticulitis. This was explained to you you expressed understanding and are agreeable with the above-mentioned plan. Consequently you are being discharged in stable condition. Should your abdominal pain return and worsen in intensity and not managed by [id number] medications for pain, please do not hesitate to return to the hospital for further evaluation and treatment. No Smoking: If you smoke, Please STOP! Call for help. Follow-up with: Marlene Hernandes ARNP [Primary Care Provider] -
[2021-02-21] MEDS: PROCHLORPERAZINE 10 MG/2 ML VIAL IVP PRN (11:13)
== END 2021-02-21 12:48 | disposition home or self-care (01) | DRG 392 ==
LOC: ED 19:01 → MS2 21:52
PROVIDERS: ADMIT Internal Medicine; ATTEND Internal Medicine
DX: K57.20 Diverticulitis of large intestine with perforation and abscess without bleeding (principal); K57.30 Diverticulosis of large intestine without perforation or abscess without bleeding; Z20.822 Contact with and (suspected) exposure to COVID-19; Z90.81 Acquired absence of spleen; K57.32 Diverticulitis of large intestine without perforation or abscess without bleeding; R79.89 Other specified abnormal findings of blood chemistry; K21.9 Gastro-esophageal reflux disease without esophagitis; M81.0 Age-related osteoporosis without current pathological fracture; Z87.891 Personal history of nicotine dependence; Z91.041 Radiographic dye allergy status
CPT/HCPCS: 36415; 74177; 80048; 80053; 81001; 83605; 83690; 83735; 84100; 85025; 87040; 87631; 96361; 96365; 96375; 96376; 99285; J1200; J2765; Q9967; 0202U; 81003; 87086

== ENCOUNTER 2021-10-18 09:41 | Outpatient (CLI) | payer MEDICARE ==
[2021-10-18 10:08] LABS: CALCIUM 9.5 mg/dL (8.5-10.3); CREATININE 0.9 mg/dL (0.4-1.0); POTASSIUM 4.8 mmol/L (3.5-5.0)
== END 2021-10-18 09:42 | disposition home or self-care (01) ==
LOC: LAB 09:41
PROVIDERS: ATTEND Registered Nurse
DX: E87.5 Hyperkalemia (principal)
CPT/HCPCS: 36415; 80048

== ENCOUNTER 2022-02-11 10:04 | Outpatient (CLI) | payer MEDICARE ==
--- NOTE | 2022-02-11 13:31 | DEXA Report ---
PROCEDURE: Dexa Spine and/or Hip INDICATIONS: OSTEOPOROSIS TECHNIQUE: Dual energy x-ray absorptiometry (DXA) was performed on a [employer] System. Regions measur ed are the AP Spine, femoral neck, and if needed forearm. COMPARISON: 02/12/2020. FINDINGS: Lumbar Spine: Bone Mineral Density 1.054 g/cm/cm,T score sinus 1.1, there is interval 2% increase in total lumba r spine bone mineral density. Left Hip: Bone Mineral Density 0.688 g/cm/cm,T score 2.5. There is interval 7.3% increase in total left hip bon e mineral density. Left Femoral Neck: Bone Mineral Density 0.626 g/cm/cm, T score -3.0. (T score greater or equal to -1.0: NORMAL) (T score from -1.1 to -2.4: OSTEOPENIA) (T score less than or equal to -2.5 to: OSTEOPOROSIS) Impression: Osteoporosis. Patients with diagnosis of osteoporosis or osteopenia should have regular bone mineral density assess ment. For those eligible for Medicare, routine testing is allowed once every 2 years. Testing frequ ency can be increased for patients who have rapidly progressing disease or for those who are receivin g medical therapy to restore bone mass. Reviewed by: Yony Winston MD on 02/11/2022 1:29 PM PDT Approved by: Yony Winston MD on 02/11/2022 1:29 PM PDT Station ID: [id number]
== END 2022-02-11 10:05 | disposition home or self-care (01) ==
LOC: DI 10:04
PROVIDERS: ATTEND Registered Nurse
DX: M81.0 Age-related osteoporosis without current pathological fracture (principal)